=== PATIENT | male | born 1965 | race Hispanic/Latino ===

== ENCOUNTER 2017-04-09 00:56 | Emergency (ER) | payer MEDICAID ==
[2017-04-09 01:14] VITALS: O2SAT 98
[2017-04-09] MEDS ORDERED: Sodium Chloride 0.9% 1,000 ML IV STA ×2 (01:39→02:45)
--- NOTE | 2017-04-09 02:39 | ED PDOC ---
HPI: Wound Care - HPI Time Seen by Provider: 04/09/17 01:16 Chief Complaint (Nursing): Trauma Chief Complaint (Provider): fall History Per: Patient, EMS History Of Present Illness: 51 y/o male brought in by EMS for evaluation of head injury sustained prior to arrival. Patient states he was walking outside and tripped on uneven sidewalk, fell face forward. Patient denies LOC, but complaining of frontal headache. Denies dizziness, nausea/vomiting, neck/back pain. Last tetanus unknown. Past Medical History Reviewed: Historical Data, Nursing Documentation, Vital Signs Vital Signs: Last Vital Signs Temp 98.2 F 04/09/17 01:11 Pulse 76 04/09/17 01:11 Resp 17 04/09/17 01:11 BP 149/97 H 04/09/17 01:11 Pulse Ox 98 04/09/17 01:11 - Medical History PMH: Diabetes (type I) - Family History Family History: States: No Known Family Hx - Immunization History Hx Tetanus Toxoid Vaccination: No Hx Influenza Vaccination: No Hx Pneumococcal Vaccination: No - Allergies Allergies/Adverse Reactions: Allergies Allergy/AdvReac Type Severity Reaction Status Date / Time No Known Allergies Allergy Verified 04/09/17 01:14 Review of Systems ROS Statement: Except As Marked, All Systems Reviewed And Found Negative Neurological: Positive for: Headache Physical Exam - Reviewed Nursing Documentation Reviewed: Yes Vital Signs Reviewed: Yes - Physical Exam Appears: Positive for: Well (cachetic), Non-toxic, Uncomfortable (agitated, aggressive with staff) Head Exam: Positive for: NORMAL INSPECTION, NORMOCEPHALIC. Negative for: ATRAUMATIC (1.5cm laceration left front scalp with mild underlying swelling. No active bleeding. Wound edges approximate wlel.) Skin: Positive for: Normal Color Eye Exam: Positive for: Normal appearance, EOMI, PERRL ENT: Positive for: Normal ENT Inspection Cardiovascular/Chest: Positive for: Regular Rate, Rhythm Respiratory: Positive for: Normal Breath Sounds Gastrointestinal/Abdominal: Positive for: Normal Exam Extremity: Positive for: Normal ROM Neurologic/Psych: Positive for: Alert, Oriented - Laboratory Results Result Diagrams: 04/09/17 01:45 04/09/17 01:45 - ECG O2 Sat by Pulse Oximetry: 98 - Progress ED Course And Treament: labs, CT head, IV fluids, IV insulin Patient refused Tetanus vaccine and ABG. EXAM: CT Head Without Intravenous Contrast EXAM DATE/TIME: 04/09/2017 1:39 AM CLINICAL HISTORY: 51 years old, male; Injury or trauma; Fall; Additional info: Head injury TECHNIQUE: Axial computed tomography images of the head/brain without intravenous contrast. All CT scans at this facility use one or more dose reduction techniques, viz.: automated exposure control; ma/kV adjustment per patient size (including targeted exams where dose is matched to indication; i.e. head); or iterative reconstruction technique. Coronal and sagittal reformatted images were created and reviewed. COMPARISON: No relevant prior studies available. FINDINGS: BRAIN: Areas of low density in the periventricular white matter bilaterally, most likely representing mild chronic small vessel ischemic changes. No significant acute abnormality identified. No acute hemorrhage seen within the brain. No acute extra-axial fluid collections visualized. No evidence of significant mass effect within the brain. VENTRICLES: No evidence of significant hydrocephalus. BONES/JOINTS: Findings compatible with an old fracture of the left medial orbital wall. No acute fractures are seen. SOFT TISSUES: Soft tissue swelling in the left anterior scalp. SINUSES: Visualized paranasal sinuses appear clear. MASTOID AIR CELLS: Mastoid air cells appear clear. IMPRESSION: - No evidence of acute intracranial injury. - Old fracture of left medial orbital wall. No acute fractures. - See above for remaining findings. Repeat accucheck 368 after 2 1L NS bolus's; 6 units IV insulin ordered Repeat accucheck 278. Patient educated on findings, states he just picked up his Lantus prescription from the pharmacy; advised to take as directed. Ice affected area. Follow up PMD 2-3 days. Return precautions given. Procedure: Wound Repair - Time Out Time Out: Side verified, Site verified, Patient ID confirmed, Sterile procedures obs. - Consent Obtained Consent obtained: Verbal - Performed by Performed by: Mid-level Provider - Indications Indication(s):: Laceration - Location Shape:: Linear Dimensions Length cm: 1.5cm Dimensions width cm: 0.2cm Depth:: Epidermis - Debris Debris:: None - Irrigated Irrigated with ml of normal saline: 200mL - Wound repair method Prem:: Tissue glue, Steri-strips - Muscle repiar layer closed with Muscle repair layer closed with:: Tetanus ordered (patient refused Tetanus vaccine) - Patient tolerated procedure Patient Tolerated Procedure:: Well Disposition - Clinical Impression Clinical Impression: Hyperglycemia, Head injury, Forehead laceration - Patient ED Disposition Is Patient to be Admitted: No Counseled Patient/Family Regarding: Studies Performed, Diagnosis, Need For Followup - Disposition Disposition: Routine/Home Disposition Time: 05:15 Condition: IMPROVED Instructions: Laceration (ED), Head Injury (ED), Skin Adhesive Care (ED), Diabetic Hyperglycemia (ED) Forms: [email or web address] (Japanese)
[2017-04-09 02:42] LABS: BASO # 0.1 K/uL (0.0-0.2); BASO % 2.8 % (0.0-2.0); EOS % 0.8 % (0.0-4.0); HEMOGLOBIN 12.5 g/dL (12.0-18.0); LYMPH # 1.2 K/uL (1.0-4.3); LYMPH % 29.9 % (20.0-40.0); MEAN CELL VOLUME 94.4 fl (80.0-94.0); MEAN CORPUSCULAR HEMOGLOBIN 31.4 pg (27.0-31.0); MEAN CORPUSCULAR HGB CONC 33.3 g/dL (33.0-37.0); MEAN PLATELET VOLUME 9.4 fl (7.2-11.7); MONO # 0.3 K/uL (0.0-0.8); MONO % 8.3 % (0.0-10.0); NEUT # 2.4 K/uL (1.8-7.0); NEUT % 58.2 % (50.0-75.0); NRBC % 0.1 % (0.0-0.0); RBC 3.99 Mil/uL (4.40-5.90); RED CELL DISTRIBUTION WIDTH 14.9 % (11.5-14.5); WHITE BLOOD COUNT 4.1 K/uL (4.8-10.8)
[2017-04-09 02:59] LABS: ALB/GLOB RATIO 1.3 (1.0-2.1); ALBUMIN 3.7 g/dL (3.5-5.0); ALT/SGPT 43 U/L (21-72); AST/SGOT 28 U/L (17-59); BLOOD UREA NITROGEN 11 mg/dl (9-20); CALCIUM 9.1 mg/dL (8.4-10.2); GFR AFRICAN-AMERICAN > 60; GFR NON-AFRICAN AMERICAN > 60
[2017-04-09 03:02] LABS: SQUAMOUS EPITHIAL < 1 /hpf (0-5); URINE BILIRUBIN NEGATIVE (NEGATIVE); URINE BLOOD NEGATIVE (NEGATIVE); URINE CLARITY CLEAR (Clear); URINE COLOR YELLOW (YELLOW); URINE GLUCOSE (UA) >=500 mg/dL (Normal); URINE LEUKOCYTE ESTERASE NEG Leu/uL (Negative); URINE PROTEIN NEGATIVE (NEGATIVE); URINE UROBILINOGEN 0.2-1.0 mg/dL (0.2-1.0)
[2017-04-09 03:30] LABS: BARBITURATES, UR NEGATIVE (NEGATIVE); BENZODIAZEPINES, UR NEGATIVE (NEGATIVE); OPIATES, UR NEGATIVE (NEGATIVE); PHENCYCLIDINE, UR NEGATIVE (NEGATIVE)
--- NOTE | 2017-04-09 03:47 | CT ---
EXAM: CT Head Without Intravenous Contrast EXAM DATE/TIME: 04/09/2017 1:39 AM CLINICAL HISTORY: 51 years old, male; Injury or trauma; Fall; Additional info: Head injury TECHNIQUE: Axial computed tomography images of the head/brain without intravenous contrast. All CT scans at this facility use one or more dose reduction techniques, viz.: automated exposure control; ma/kV adjustment per patient size (including targeted exams where dose is matched to indication; i.e. head); or iterative reconstruction technique. Coronal and sagittal reformatted images were created and reviewed. COMPARISON: No relevant prior studies available. FINDINGS: BRAIN: Areas of low density in the periventricular white matter bilaterally, most likely representing mild chronic small vessel ischemic changes. No significant acute abnormality identified. No acute hemorrhage seen within the brain. No acute extra-axial fluid collections visualized. No evidence of significant mass effect within the brain. VENTRICLES: No evidence of significant hydrocephalus. BONES/JOINTS: Findings compatible with an old fracture of the left medial orbital wall. No acute fractures are seen. SOFT TISSUES: Soft tissue swelling in the left anterior scalp. SINUSES: Visualized paranasal sinuses appear clear. MASTOID AIR CELLS: Mastoid air cells appear clear. IMPRESSION: - No evidence of acute intracranial injury. - Old fracture of left medial orbital wall. No acute fractures. - See above for remaining findings.
[2017-04-09] MEDS ORDERED: Insulin Regular 100 units/ml IV STA (03:51)
[2017-04-09 03:53] VITALS: BP 136/92; PULSE 79; RESP 18; TEMP 98
[2017-04-09] MEDS ORDERED: Insulin Regular 100 units/ml ONE ×3 (03:59→17:27)
[2017-04-09 08:55] LABS: VENOUS BLOOD GAS BASE EXCESS -0.1 mmol/L (0.0-2.0); VENOUS BLOOD GAS PCO2 44 mmHg (40-60); VENOUS BLOOD GAS PO2 47 mm/Hg (30-55); VENOUS BLOOD PH 7.37 (7.32-7.43)
== END 2017-04-09 05:42 | disposition home or self-care (01) ==
LOC: H.ER 00:56
DX: S01.81XA Laceration without foreign body of other part of head, initial encounter (principal); S09.90XA Unspecified injury of head, initial encounter; W01.0XXA Fall on same level from slipping, tripping and stumbling without subsequent striking against object, initial encounter; Y92.89 Other specified places as the place of occurrence of the external cause; E11.65 Type 2 diabetes mellitus with hyperglycemia
CPT/HCPCS: 70450; 80053; 80320; 80324; 80345; 80346; 80349; 80353; 80358; 80361; 81003; 82803; 82948; 83992; 85025; 96374; 99284; J7040

== ENCOUNTER 2017-04-09 13:48 | Inpatient (IN) | payer MEDICAID ==
[2017-04-09] MEDS ORDERED: Sodium Chloride 0.9% 500 ML IV STA (14:06)
--- NOTE | 2017-04-09 14:22 | ED PDOC ---
HPI: General Adult Time Seen by Provider: 04/09/17 13:58 Chief Complaint (Nursing): High Blood Sugar Chief Complaint (Provider): high blood sugar History Per: Patient, EMS History/Exam Limitations: no limitations Onset/Duration Of Symptoms: Days (today) Additional Complaint(s): Pt. was at the [facility] asking for a place to stay, food, clothes. Pt. stated he was weak so EMS called. Pt. states he is cold and wants a blanket. Denies any chest pain, dyspnea, weakness, cough, headache, numbness, tingles, dizziness, nausea, vomit, diarrhea. Is homeless. Past Medical History Reviewed: Nursing Documentation, Vital Signs Vital Signs: Last Vital Signs Temp 96.7 F L 04/09/17 13:52 Pulse 72 04/09/17 16:24 Resp 20 04/09/17 13:52 BP 147/102 H 04/09/17 13:52 Pulse Ox 99 04/09/17 15:36 - Medical History PMH: Diabetes (type I) - Family History Family History: States: Unknown Family Hx - Immunization History Hx Tetanus Toxoid Vaccination: No Hx Influenza Vaccination: No Hx Pneumococcal Vaccination: No - Home Medications Home Medications: Ambulatory Orders Medication Instructions Recorded No Known Home Med 04/09/17 - Allergies Allergies/Adverse Reactions: Allergies Allergy/AdvReac Type Severity Reaction Status Date / Time No Known Allergies Allergy Verified 04/09/17 13:57 Review of Systems ROS Statement: Except As Marked, All Systems Reviewed And Found Negative Physical Exam - Reviewed Nursing Documentation Reviewed: Yes Vital Signs Reviewed: Yes - Physical Exam Appears: Positive for: Uncomfortable Head Exam: Positive for: NORMAL INSPECTION, NORMOCEPHALIC. Negative for: ATRAUMATIC (sutured laceration) Skin: Positive for: Normal Color, Warm, DRY Eye Exam: Positive for: EOMI, Normal appearance, PERRL ENT: Positive for: Normal ENT Inspection Neck: Positive for: Normal, Painless ROM Cardiovascular/Chest: Positive for: Regular Rate, Rhythm Respiratory: Positive for: CNT, Normal Breath Sounds Gastrointestinal/Abdominal: Positive for: Normal Exam, Bowel Sounds, Soft. Negative for: Tenderness Back: Positive for: Normal Inspection. Negative for: L CVA Tenderness, R CVA Tenderness Extremity: Positive for: Normal ROM. 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 Negative for: Motor/Sensory Deficits - Laboratory Results Result Diagrams: 04/09/17 14:30 04/09/17 14:30 Interpretation Of Abn Labs: 1020 glucose; chloride 89 - ECG ECG: Positive for: Interpreted By Me, Viewed By Me ECG Rhythm: Positive for: Normal QRS, Normal ST Segment, Sinus Rhythm O2 Sat by Pulse Oximetry: 99 Pulse Ox Interpretation: Normal - Progress ED Course And Treament: 1705: Stable. Spoke with Dr. Pryor who will admit. Will continue monitoring. Pt. not compliant. Not listening to need for further blood or fluids. Demands food. Sugar in 400 level. Will hold off on drip. Continue fluids and insulin bolus as needed. - Critical Care Total Time (In Min): 30 Documented Critical Care: Time excludes all time spent performint seperately billable procedures Disposition - Clinical Impression Clinical Impression: Hyperglycemia - Patient ED Disposition Is Patient to be Admitted: Yes Counseled Patient/Family Regarding: Studies Performed, Diagnosis - Disposition Disposition Time: 17:19 Condition: GUARDED - Pt Status Changed To: Hospital Disposition Of: Inpatient - Admit Certification Admit to Inpatient:: After my assessment, the patient will require hospitalization for at least two midnights. This is because of the severity of symptoms shown, intensity of services needed, and/or the medical risk in this patient being treated as an outpatient. - POA Present On Arrival: Poor Glycemic Control
[2017-04-09] MEDS ORDERED: Sodium Chloride 0.9% 1,000 ML IV STA ×2 (14:34→16:42)
[2017-04-09 14:40] LABS: BASO % 1.1 % (0.0-2.0); EOS % 0.3 % (0.0-4.0); HEMOGLOBIN 12.2 g/dL (12.0-18.0); LYMPH # 0.7 K/uL (1.0-4.3); MEAN CELL VOLUME 95.9 fl (80.0-94.0); MEAN CORPUSCULAR HEMOGLOBIN 31.3 pg (27.0-31.0); MEAN CORPUSCULAR HGB CONC 32.6 g/dL (33.0-37.0); MONO # 0.3 K/uL (0.0-0.8); MONO % 7.4 % (0.0-10.0); NEUT # 2.9 K/uL (1.8-7.0); NEUT % 73.2 % (50.0-75.0); NRBC % 0.1 % (0.0-0.0); RBC 3.89 Mil/uL (4.40-5.90)
[2017-04-09 14:56] LABS: ALB/GLOB RATIO 1.5 (1.0-2.1); ALBUMIN 3.7 g/dL (3.5-5.0); ALT/SGPT 61 U/L (21-72); AST/SGOT 87 U/L (17-59); BLOOD UREA NITROGEN 10 mg/dl (9-20); CALCIUM 8.8 mg/dL (8.4-10.2); GFR AFRICAN-AMERICAN > 60; GFR NON-AFRICAN AMERICAN > 60
[2017-04-09] MEDS ORDERED: Insulin Regular 100 units/ml IV STA ×2 (15:35→18:32)
[2017-04-09 17:33] LABS: VENOUS BLOOD GAS BASE EXCESS -1.1 mmol/L (0.0-2.0); VENOUS BLOOD GAS PCO2 51 mmHg (40-60); VENOUS BLOOD GAS PO2 29 mm/Hg (30-55); VENOUS BLOOD PH 7.31 (7.32-7.43)
[2017-04-09] MEDS ORDERED: Insulin Regular 100 units/ml ONE (17:51)
[2017-04-09 18:31] LABS: URINE BILIRUBIN NEGATIVE (NEGATIVE); URINE BLOOD NEGATIVE (NEGATIVE); URINE CLARITY CLEAR (Clear); URINE COLOR COLORLESS (YELLOW); URINE GLUCOSE (UA) >=500 mg/dL (Normal); URINE LEUKOCYTE ESTERASE NEG Leu/uL (Negative); URINE NITRATE NEGATIVE (NEGATIVE); URINE PROTEIN NEGATIVE (NEGATIVE); URINE UROBILINOGEN 0.2-1.0 mg/dL (0.2-1.0)
--- NOTE | 2017-04-09 18:36 | RAD ---
HISTORY: high blood sugar COMPARISON: No prior. FINDINGS: LUNGS: No active pulmonary disease. PLEURA: No significant pleural effusion identified, no pneumothorax apparent. CARDIOVASCULAR: Normal. OSSEOUS STRUCTURES: No significant abnormalities. VISUALIZED UPPER ABDOMEN: Normal. OTHER FINDINGS: None. IMPRESSION: No active disease.
--- NOTE | 2017-04-09 18:49 | CP.PCM.HP ---
History of Present Illness - History of Present Illness History of Present Illness: 51 yo homeless male know diabetic came in complaining of feeling weak and asking for a place to stay. Denied SOB, chest pain, nausea or vomiting. Present on Admission - Present on Admission Any Indicators Present on Admission: No History of DVT/PE: No History of Uncontrolled Diabetes: No Urinary Catheter: No Decubitus Ulcer Present: No Review of Systems - Review of Systems Systems not reviewed;Unavailable: Uncooperative (refused to be bothered and appeared agitated) Past Patient History - Tetanus Immunizations Tetanus Immunization: Unknown - Past Social History Smoking Status: Heavy Smoker > 10 Cigarettes Daily Home Situation {Lives}: Homeless - ENDOCRINE/METABOLIC Hx Diabetes Mellitus Type 1: Yes - PSYCHIATRIC Hx Substance Use: No Meds Allergies/Adverse Reactions: Allergies Allergy/AdvReac Type Severity Reaction Status Date / Time No Known Allergies Allergy Verified 04/09/17 13:57 Physical Exam - Constitutional Appears: No Acute Distress, Unkempt, Agitated - Head Exam Head Exam: ATRAUMATIC - Eye Exam Eye Exam: absent: Scleral icterus - ENT Exam ENT Exam: Mucous Membranes Moist - Respiratory Exam Respiratory Exam: absent: Rhonchi, Wheezes, Respiratory Distress - Cardiovascular Exam Cardiovascular Exam: REGULAR RHYTHM, +S1, +S2 - GI/Abdominal Exam GI & Abdominal Exam: Soft. absent: Tenderness - Rectal Exam Rectal Exam: Deferred - Neurological Exam Neurological exam: Alert - Psychiatric Exam Psychiatric exam: Agitated - Skin Skin Exam: Dry, Intact Results - Vital Signs Recent Vital Signs: Last Vital Signs Temp 96.7 F L 04/09/17 13:52 Pulse 72 04/09/17 16:24 Resp 20 04/09/17 13:52 BP 147/102 H 04/09/17 13:52 Pulse Ox 99 04/09/17 17:19 - Labs Result Diagrams: 04/09/17 14:30 04/09/17 14:30 Labs: Laboratory Results - last 24 hr 04/09/17 04/09/17 04/09/17 14:30 14:30 15:50 WBC 4.0 L RBC 3.89 L Hgb 12.2 Hct 37.3 MCV 95.9 H MCH 31.3 H MCHC 32.6 L RDW 15.0 H Plt Count 173 MPV 10.0 Neut % (Auto) 73.2 Lymph % (Auto) 18.0 L Piatt % (Auto) 7.4 Eos % (Auto) 0.3 Baso % (Auto) 1.1 Neut # (Auto) 2.9 Lymph # (Auto) 0.7 L Piatt # (Auto) 0.3 Eos # (Auto) 0.0 Baso # (Auto) 0.0 pO2 29 L VBG pH 7.31 L VBG pCO2 51 VBG HCO3 23.1 VBG Total CO2 27.3 VBG O2 Sat (Calc) 62.1 VBG Base Excess -1.1 L VBG Potassium 3.8 A-a O2 Difference 57.0 Glucose 497 H* Lactate 2.8 H FiO2 21.0 Crit Value Called To Kya flaherty rn Crit Value Called By 15 Crit Value Read Back Y Blood Gas Notified Time 1733 Sodium 123 L 129.0 L Potassium 5.6 H Chloride 89 L 92.0 L Carbon Dioxide 27 Anion Gap 13 BUN 10 Creatinine 0.5 L Est GFR ( Amer) > 60 Est GFR (Non-Af Amer) > 60 POC Glucose (mg/dL) Random Glucose 1020 H* Calcium 8.8 Total Bilirubin 0.5 AST 87 H D ALT 61 Alkaline Phosphatase 289 H Troponin I < 0.0120 Total Protein 6.3 Albumin 3.7 Globulin 2.5 Albumin/Globulin Ratio 1.5 Venous Blood Potassium 3.8 Alcohol, Quantitative < 10 04/09/17 17:15 WBC RBC Hgb Hct MCV MCH MCHC RDW Plt Count MPV Neut % (Auto) Lymph % (Auto) Piatt % (Auto) Eos % (Auto) Baso % (Auto) Neut # (Auto) Lymph # (Auto) Piatt # (Auto) Eos # (Auto) Baso # (Auto) pO2 VBG pH VBG pCO2 VBG HCO3 VBG Total CO2 VBG O2 Sat (Calc) VBG Base Excess VBG Potassium A-a O2 Difference Glucose Lactate FiO2 Crit Value Called To Crit Value Called By Crit Value Read Back Blood Gas Notified Time Sodium Potassium Chloride Carbon Dioxide Anion Gap BUN Creatinine Est GFR ( Amer) Est GFR (Non-Af Amer) POC Glucose (mg/dL) 418 H* Random Glucose Calcium Total Bilirubin AST ALT Alkaline Phosphatase Troponin I Total Protein Albumin Globulin Albumin/Globulin Ratio Venous Blood Potassium Alcohol, Quantitative Assessment & Plan (1) Hyperglycemia Status: Chronic Comment: patient admitted being diabetic but not on any medication. patient cannot be type 1 since he would have gone into DKA if he was not receiving insulin with BS of 1050. start IVF with NSS 500cc/hr x 4 liters. HgA1C, BMP in am. accuchek q 4hrs with moderate Lispro coverage
[2017-04-09 21:11] LABS: BLOOD UREA NITROGEN 10 mg/dl (9-20); CALCIUM 8.4 mg/dL (8.4-10.2); GFR AFRICAN-AMERICAN > 60; GFR NON-AFRICAN AMERICAN > 60
[2017-04-09] MEDS: Sodium Chloride 0.9% 1,000 ML IV SCH ×2 (21:56→23:57)
[2017-04-10 06:08] LABS: BASO # 0.1 K/uL (0.0-0.2); BASO % 1.6 % (0.0-2.0); EOS # 0.1 K/uL (0.0-0.7); EOS % 1.9 % (0.0-4.0); HEMOGLOBIN 11.6 g/dL (12.0-18.0); LYMPH # 1.3 K/uL (1.0-4.3); LYMPH % 35.1 % (20.0-40.0); MEAN CELL VOLUME 92.6 fl (80.0-94.0); MEAN CORPUSCULAR HEMOGLOBIN 31.8 pg (27.0-31.0); MEAN CORPUSCULAR HGB CONC 34.4 g/dL (33.0-37.0); MEAN PLATELET VOLUME 9.4 fl (7.2-11.7); MONO # 0.4 K/uL (0.0-0.8); MONO % 10.1 % (0.0-10.0); NEUT # 1.9 K/uL (1.8-7.0); NEUT % 51.3 % (50.0-75.0); RBC 3.64 Mil/uL (4.40-5.90); RED CELL DISTRIBUTION WIDTH 14.8 % (11.5-14.5); WHITE BLOOD COUNT 3.8 K/uL (4.8-10.8)
[2017-04-10] MEDS: Insulin Regular 100 units/ml SC SCH ×4 (06:49→22:10)
[2017-04-10] MEDS ORDERED: Insulin Regular 100 units/ml SC SCH (07:30)
[2017-04-10 08:21] LABS: BLOOD UREA NITROGEN 10 mg/dl (9-20); GFR AFRICAN-AMERICAN > 60; GFR NON-AFRICAN AMERICAN > 60
[2017-04-10 08:24] LABS: CALCIUM 8.4 mg/dL (8.4-10.2)
[2017-04-10] MEDS: Pantoprazole 40 mg EC Tab PO SCH (08:57)
[2017-04-10] MEDS: Enoxaparin 40 mg Syringe SC SCH (08:57)
--- NOTE | 2017-04-10 10:31 | CP.PCM.PN ---
Subjective - Date & Time of Evaluation Date of Evaluation: 04/10/17 Time of Evaluation: 09:35 - Subjective Subjective: 51 y/o M evaluated and examined by bedside. Pt reports feeling well, with NO acute complaints. Pt exclaims feeling very hungry and demanding food. Pt denies fever, headache, dizziness, CP, SOB, abdominal pain, urinary complaints. -- Pt reports being diagnosed with DM 2 ~20 years ago. Lispro is the last medication he recalls being administered himself. Pt is not very compliant with history taking. Pt demanding food at all times. Objective - Vital Signs/Intake and Output Vital Signs (last 24 hours): Temp Pulse Resp BP Pulse Ox 97.4 F L 75 20 131/83 98 04/10/17 08:58 04/10/17 08:58 04/10/17 08:58 04/10/17 08:58 04/10/17 08:58 Intake and Output: 04/10/17 04/10/17 06:59 18:59 Intake Total 2500 Output Total 1 Balance 2499 - Medications Medications: Current Medications Enoxaparin Sodium (Lovenox) 40 mg SC DAILY [facility] PRN Reason: Protocol Last Admin: 04/10/17 08:57 Dose: 40 mg Glipizide (Glucotrol) 10 mg PO ACB [facility] Insulin Human Regular (Humulin R) 0 units SC ACHS [facility] PRN Reason: Protocol Last Admin: 04/10/17 06:49 Dose: 8 units Metformin HCl (Glucophage) 500 mg PO BIDWM [facility] Pantoprazole Sodium (Protonix Ec Tab) 40 mg PO DAILY [facility] Last Admin: 04/10/17 08:57 Dose: 40 mg - Labs Labs: 04/10/17 05:00 04/10/17 05:00 - Constitutional Appears: Well, No Acute Distress, Cachectic - Eye Exam Eye Exam: Normal appearance - ENT Exam ENT Exam: Mucous Membranes Moist - Neck Exam Neck Exam: Full ROM. absent: Lymphadenopathy, Meningismus - Respiratory Exam Respiratory Exam: absent: Rales, Rhonchi, Wheezes - Cardiovascular Exam Cardiovascular Exam: REGULAR RHYTHM, +S1, +S2 - GI/Abdominal Exam GI & Abdominal Exam: Soft. absent: Tenderness - Neurological Exam Neurological Exam: Alert, Awake Assessment and Plan - Assessment and Plan (Free Text) Assessment: 51 y/o M with a pMHx of uncontrolled DM admitted for evaluation and management of Hyperglycemic hyperosmolar syndrome (HHS) Plan: 1. Hyperglycemic hyperosmolar syndrome (HHS) - serum glucose 1020 on 04/09/17, 287 last night and 452 this morning. - Consult to Endocrinology, Dr Blue. - IV NSS, maintenance - Initiate Metformin 500mg BID and Glipizide 10mg ACB - Sitagliptin 100mg daily as per Endocrinology. - Insulin sliding scale. 2. Prophylaxis - Enoxaparin SC daily - Pantoprazole daily. 3. Homeless situation - Social work consult.
--- NOTE | 2017-04-10 11:27 | CARD ---
APPROVED REPORT EKG Measurement Heart [id number] <Conclusion> Normal sinus rhythm Nonspecific ST abnormality Abnormal ECG
[2017-04-10] MEDS: Sodium Chloride 0.45% 1,000 ML IV SCH (14:30)
[2017-04-10] MEDS ORDERED: Insulin Detemir 100 Units/ml Inj SC SCH (22:00)
[2017-04-11] MEDS: Sodium Chloride 0.45% 1,000 ML IV SCH ×2 (01:35→12:26)
--- NOTE | 2017-04-11 04:12 | CON ---
ENDOCRINOLOGY CONSULT DATE: LOCATION: In room 407 HISTORY OF PRESENT ILLNESS: This is a 51-year-old male with known history of type 2 insulin-requiring diabetes presenting here with marked hyperglycemic accelerations and dehydration and is now being referred for diabetic evaluation and management. PAST MEDICAL HISTORY: As mentioned above, history of type 2 insulin-requiring diabetes using Lantus given as 15 units subcutaneously at bedtime daily as outpatient. He is also using oral hypoglycemic therapy with recent usage of metformin given as 500 mg b.i.d. and glipizide as 5 mg once daily as noted. History of hypertension and dyslipidemia. FAMILY HISTORY: Positive for diabetes and hypertension. SOCIAL HISTORY: The patient is currently homeless at this time. Admits to longstanding nicotine dependence and also social use of alcohol. No other illicit drug use. REVIEW OF SYSTEMS: Admits to generalized body weakness with easy fatigability and tiredness and suboptimal energy level. Also admits to progressively worsening dizziness and lightheadedness, worse on the day of admission. No chest pains or palpitations or PND, but his oral intake has been variable with nausea, dyspepsia, and vague upper abdominal pains with intermittent vomiting episodes. He also admits to marked polyuria, nocturia, and polydipsia as noted. He also admits to recent weight loss over 10 pounds as noted. PHYSICAL EXAMINATION: GENERAL: and emaciated-looking male in no apparent distress. VITAL SIGNS: Blood pressure of 150/90, pulse of 100 beats per minute and regular, temperature 98, respirations 20, height is 5 feet 9 inches, and weight is 130 pounds. HEENT: Head is normocephalic. Eyes; anicteric with pink conjunctivae. Funduscopy not possible at this time. Ears, nose, and throat otherwise normal. NECK: Supple. Thyroid gland is normal in size. No carotid bruits or cervical adenopathy. CARDIOPULMONARY: Some adynamic precordium. S1 and S2 is rapid and regular. LUNGS: Show scattered rhonchi. ABDOMEN: Flat, soft with positive bowel sounds. EXTREMITIES: No peripheral edema. Pulses are +2 bilaterally. LABORATORY DATA: His chemistries showed a BUN of 10, sodium 128, potassium 4.5, chloride 95, CO2 of 28, glucose 452, and creatinine 0.4. His glucose levels are ranging from 245 to 319 mg/dL. His TSH is 7.06. ASSESSMENT AND PLAN: This is a 51-year-old male with uncontrolled and decompensated type 2 insulin-requiring diabetes presenting here with hyperosmolar hyperglycemic state and dehydration with spurious hyponatremia. Plan of management as discussed with the patient and staff. We will continue the vigorous intravenous hydration as given and obtain serial chemistries and supplement accordingly as needed. We will initiate a basal and bolus insulin drug combination as indicated, but for now because of his homelessness situation, we will give him only a basal insulin with Levemir given as 20 units subcutaneously at bedtime daily to start tonight. We will modify the coverage scale to a low-dose algorithm and detailed orders have been given for Humalog insulin as ordered. We will also maximize his oral hypoglycemic therapy and increase the glipizide to 10 mg b.i.d. before meals and continue the metformin at 500 mg b.i.d. with meals as ordered. We will also add Januvia at 100 mg once daily in the morning as given. We will titrate incremental as indicated to optimize metabolic control. We will obtain a hemoglobin A1c to confirm his prior glycemic control and repeat the more comprehensive thyroid hormonal profile and add levothyroxine if he indeed has early hypothyroidism. We will follow. Brissa Blue MD
[2017-04-11] MEDS ORDERED: Levothyroxine 25 MCG TAB PO SCH (06:30)
[2017-04-11] MEDS: Insulin Regular 100 units/ml SC SCH ×2 (06:54→12:24)
[2017-04-11 07:04] LABS: ALB/GLOB RATIO 1.1 (1.0-2.1); ALT/SGPT 35 U/L (21-72); AST/SGOT 38 U/L (17-59); BLOOD UREA NITROGEN 8 mg/dl (9-20); CALCIUM 8.6 mg/dL (8.4-10.2); GFR AFRICAN-AMERICAN > 60; GFR NON-AFRICAN AMERICAN > 60
[2017-04-11 08:45] LABS: T4 8.59 ug/dl (5.5-11.0)
[2017-04-11 08:48] VITALS: RESP 18; O2SAT 98
[2017-04-11 08:59] LABS: T3 0.795 nmol/L (1.49-2.60)
[2017-04-11] MEDS: Pantoprazole 40 mg EC Tab PO SCH (09:47)
[2017-04-11] MEDS: Enoxaparin 40 mg Syringe SC SCH (09:47)
--- NOTE | 2017-04-11 10:57 | CP.PCM.DIS ---
Provider - Provider Date of Admission: 04/09/17 17:08 Attending physician: Orlin Pryor MD Primary care physician: None. Consults: Endocrinology: Dr Blue. Time Spent in preparation of Discharge (in minutes): 30 Diagnosis - Discharge Diagnosis (1) Type 2 diabetes mellitus with hyperosmolar nonketotic hyperglycemia Status: Acute Comment: -Today's serum glucose 165-improved. -Rx for Glipizide, Metformin, Levemir and Januvia, with 2 refills. -Pt counseled on the important need for PCP frequent follow-ups. -F/U with PMD after psych unit discharge. (2) Hypothyroidism Status: Acute Comment: - Initiated on levothyroxine 25mcg daily. -F/U thyroid panel results. (3) Depression Status: Acute Comment: -Psychiatry consulted, recommended rehabilitations at psych unit. -Pt medically cleared for discharge to Psych. Hospital Course - Lab Results Lab Results: Most Recent Lab Values WBC 3.8 K/uL (4.8-10.8) L 04/10/17 05:00 RBC 3.64 Mil/uL (4.40-5.90) L 04/10/17 05:00 Hgb 11.6 g/dL (12.0-18.0) L 04/10/17 05:00 Hct 33.7 % (35.0-51.0) L 04/10/17 05:00 MCV 92.6 fl (80.0-94.0) D 04/10/17 05:00 MCH 31.8 pg (27.0-31.0) H 04/10/17 05:00 MCHC 34.4 g/dL (33.0-37.0) 04/10/17 05:00 RDW 14.8 % (11.5-14.5) H 04/10/17 05:00 Plt Count 160 K/uL (130-400) 04/10/17 05:00 MPV 9.4 fl (7.2-11.7) 04/10/17 05:00 Neut % (Auto) 51.3 % (50.0-75.0) 04/10/17 05:00 Lymph % (Auto) 35.1 % (20.0-40.0) 04/10/17 05:00 [place] % (Auto) 10.1 % (0.0-10.0) H 04/10/17 05:00 Eos % (Auto) 1.9 % (0.0-4.0) 04/10/17 05:00 Baso % (Auto) 1.6 % (0.0-2.0) 04/10/17 05:00 Neut # (Auto) 1.9 K/uL (1.8-7.0) 04/10/17 05:00 Lymph # (Auto) 1.3 K/uL (1.0-4.3) 04/10/17 05:00 [place] # (Auto) 0.4 K/uL (0.0-0.8) 04/10/17 05:00 Eos # (Auto) 0.1 K/uL (0.0-0.7) 04/10/17 05:00 Baso # (Auto) 0.1 K/uL (0.0-0.2) 04/10/17 05:00 pO2 29 mm/Hg (30-55) L 04/09/17 15:50 VBG pH 7.31 (7.32-7.43) L 04/09/17 15:50 VBG pCO2 51 mmHg (40-60) 04/09/17 15:50 VBG HCO3 23.1 mmol/L 04/09/17 15:50 VBG Total CO2 27.3 mmol/L (22-28) 04/09/17 15:50 VBG O2 Sat (Calc) 62.1 % (40-65) 04/09/17 15:50 VBG Base Excess -1.1 mmol/L (0.0-2.0) L 04/09/17 15:50 VBG Potassium 3.8 mmol/L (3.6-5.2) 04/09/17 15:50 A-a O2 Difference 57.0 mm/Hg 04/09/17 15:50 Sodium 129.0 mmol/L (132-148) L 04/09/17 15:50 Chloride 92.0 mmol/L (98-107) L 04/09/17 15:50 Glucose 497 mg/dL (75-110) H* 04/09/17 15:50 Lactate 2.8 mmol/L (0.7-2.1) H 04/09/17 15:50 FiO2 21.0 % 04/09/17 15:50 Crit Value Called To Kya flaherty rn 04/09/17 15:50 Crit Value Called By 15 04/09/17 15:50 Crit Value Read Back Y 04/09/17 15:50 Blood Gas Notified Time 1733 04/09/17 15:50 Sodium 130 mmol/l (132-148) L 04/11/17 05:14 Potassium 4.2 MMOL/L (3.6-5.0) 04/11/17 05:14 Chloride 98 mmol/L (98-107) 04/11/17 05:14 Carbon Dioxide 26 mmol/L (22-30) 04/11/17 05:14 Anion Gap 10 (10-20) 04/11/17 05:14 BUN 8 mg/dl (9-20) L 04/11/17 05:14 Creatinine 0.5 mg/dl (0.8-1.5) L 04/11/17 05:14 Est GFR ( Amer) > 60 04/11/17 05:14 Est GFR (Non-Af Amer) > 60 04/11/17 05:14 POC Glucose (mg/dL) 165 mg/dL (65-110) H 04/11/17 06:03 Random Glucose 183 mg/dL (75-110) H 04/11/17 05:14 Hemoglobin A1c 12.9 % (4.2-6.5) H 04/10/17 08:46 Calcium 8.6 mg/dL (8.4-10.2) 04/11/17 05:14 Total Bilirubin 0.3 mg/dl (0.2-1.3) 04/11/17 05:14 AST 38 U/L (17-59) 04/11/17 05:14 ALT 35 U/L (21-72) 04/11/17 05:14 Alkaline Phosphatase 181 U/L (38-126) H D 04/11/17 05:14 Troponin I < 0.0120 ng/mL (0.00-0.120) 04/09/17 14:30 Total Protein 5.6 G/DL (6.3-8.2) L 04/11/17 05:14 Albumin 3.0 g/dL (3.5-5.0) L 04/11/17 05:14 Globulin 2.6 gm/dL (2.2-3.9) 04/11/17 05:14 Albumin/Globulin Ratio 1.1 (1.0-2.1) 04/11/17 05:14 Thyroxine (T4) 8.59 ug/dl (5.5-11.0) 04/11/17 05:14 Total T3 0.795 nmol/L (1.49-2.60) L 04/11/17 05:14 TSH 3rd Generation 8.42 mIU/ML (0.46-4.68) H 04/11/17 05:14 Venous Blood Potassium 3.8 mmol/L (3.6-5.2) 04/09/17 15:50 Urine Color Colorless (YELLOW) 04/09/17 18:14 Urine Clarity Clear (Clear) 04/09/17 18:14 Urine pH 7.0 (5.0-8.0) 04/09/17 18:14 Ur Specific [place] 1.020 (1.003-1.030) 04/09/17 18:14 Urine Protein Negative mg/dL (NEGATIVE) 04/09/17 18:14 Urine Glucose (UA) >=500 mg/dL (Normal) 04/09/17 18:14 Urine Ketones Negative mg/dL (NEGATIVE) 04/09/17 18:14 Urine Blood Negative (NEGATIVE) 04/09/17 18:14 Urine Nitrate Negative (NEGATIVE) 04/09/17 18:14 Urine Bilirubin Negative (NEGATIVE) 04/09/17 18:14 Urine Urobilinogen 0.2-1.0 mg/dL (0.2-1.0) 04/09/17 18:14 Ur Leukocyte Esterase Neg [place]/uL (Negative) 04/09/17 18:14 Urine RBC (Auto) 1 /hpf (0-3) 04/09/17 18:14 Urine Microscopic WBC < 1 /hpf (0-5) 04/09/17 18:14 Alcohol, Quantitative < 10 mg/dl (0-10) 04/09/17 14:30 - Hospital Course Hospital Course: 51 y/o M with a PMhx of uncontrolled DM was admitted for management of hyperosmolar hyperglycemic syndrome. Pt presented to ER with a serum glucose level of 1020 mg/dL. HbA1c 12.9-elevated. Filter Tender Jelly evaluated pt. Pt received IV fluids, initiated on Metformin, Glipizide, Januvia and Levemir. Pt remained afebrile and tolerating PO during hospitalization. TSH was elevated, Levothyroxine was initiated. Pt also complained of aggravating depression, having suicidal ideas with no reasons for leaving Today, pt is stable, will be discharged to psych unit with prescriptions for medications. Pt instructed to f/ u with PMD after d/c from hospital. - Date & Time of H&P Date of H&P: 04/09/17 Time of H&P: 18:09 Discharge Exam - Head Exam Additional comments: Minor abrasion and small laceration on L frontal area. - Eye Exam Eye Exam: EOMI, Normal appearance - ENT Exam ENT Exam: Mucous Membranes Moist - Neck Exam Neck exam: Full Rom - Respiratory Exam Respiratory Exam: NORMAL BREATHING PATTERN, UNREMARKABLE - Cardiovascular Exam Cardiovascular Exam: REGULAR RHYTHM, +S1, +S2 - GI/Abdominal Exam GI & Abdominal Exam: Normal Bowel Sounds, Soft. absent: Distended, Guarding, Tenderness - Psychiatric Exam Psychiatric exam: Flat Affect Discharge Plan - Discharge Medications Prescriptions: GlipiZIDE [Glucotrol] 10 mg PO ACBD #30 tab Insulin Detemir [Levemir] 20 units SC HS #1 vial Levothyroxine [Synthroid] 25 mcg PO DAILY@0630 #30 tab metFORMIN [glucOPHAGE] 500 mg PO BIDWM #60 tab SITagliptin [Januvia] 100 mg PO DAILY #30 tab - Follow Up Plan Condition: GUARDED Disposition: HOME/ ROUTINE Instructions: Hypothyroidism (DC), Diabetes Mellitus Type 2 in Adults (DC) Additional Instructions: - Please establish care with a PCP and f/u with PMD within 1 week. - Take medications as instructed. Referrals: [facility] [place] [Outside]
[2017-04-11] MEDS ORDERED: Insulin Regular 100 units/ml SC STA (12:23)
[2017-04-11 13:08] VITALS: BP 119/81; PULSE 83; TEMP 98.2
--- NOTE | 2017-04-11 13:38 | CP.PCM.CON ---
History of Present Illness - History of Present Illness History of Present Illness: consult requested as pt presenting with depressed mood and passive suicidal ideations without plan pt is 51 y/o M with a PMhx of uncontrolled DM was admitted for management of hyperosmolar hyperglycemic syndorme. Pt presented to ER with a serum glucose level of 1020mg/dL. pt currently medically stable, on discharge expressed depressed mood , reported having suicidal ideation , would not elaborate on a plan pt stated he has been depressed for twenty years since he was placed on disability because of diabetes, prt reported never had previous formal psyciatric treatment or hospitalization as he refused to address the problem reported currently depressed , low energy anhedonia pt stated has been using unspecified amount of alcohol, last use was two weeks ago, denied any current substance use denied any current perceptual disturbances Past Patient History - Tetanus Immunizations Tetanus Immunization: Unknown - Past Medical History & Family History Past Medical History?: Yes - Past Social History Smoking Status: Light Smoker < 10 Cigarettes Daily - ENDOCRINE/METABOLIC Hx Diabetes Mellitus Type 1: Yes - MUSCULOSKELETAL/RHEUMATOLOGICAL Hx Falls: Yes - PSYCHIATRIC Hx Substance Use: No Meds Home Medications: Home Medication List Medication Instructions Recorded Confirmed Type GlipiZIDE [Glucotrol] 10 mg PO ACBD #30 tab 04/11/17 Rx Insulin Detemir [Levemir] 20 units SC HS #1 vial 04/11/17 Rx Levothyroxine [Synthroid] 25 mcg PO DAILY@0630 #30 tab 04/11/17 Rx SITagliptin [Januvia] 100 mg PO DAILY #30 tab 04/11/17 Rx metFORMIN [glucOPHAGE] 500 mg PO BIDWM #60 tab 04/11/17 Rx Allergies/Adverse Reactions: Allergies Allergy/AdvReac Type Severity Reaction Status Date / Time No Known Allergies Allergy Verified 04/09/17 13:57 - Medications Medications: Current Medications Enoxaparin Sodium (Lovenox) 40 mg SC DAILY AVRIL PRN Reason: Protocol Last Admin: 04/11/17 09:47 Dose: 40 mg Glipizide (Glucotrol) 10 mg PO ACBD [facility] Last Admin: 04/11/17 09:46 Dose: 10 mg Sodium Chloride (Sodium Chloride 0.45%) 1,000 mls @ 100 mls/hr IV .Q10H AVRIL Stop: 04/11/17 14:08 Last Admin: 04/11/17 12:26 Dose: 100 mls/hr Insulin Detemir (Levemir) 20 units SC [facility] Last Admin: 04/10/17 22:12 Dose: 20 u Insulin Human Regular (Humulin R) 0 units SC [facility] PRN Reason: Protocol Last Admin: 04/11/17 12:24 Dose: 12 units Levothyroxine Sodium (Synthroid) 25 mcg PO DAILY@0630 [facility] Last Admin: 04/11/17 06:03 Dose: 25 mcg Metformin HCl (Glucophage) 500 mg PO BIDWM [facility] Last Admin: 04/11/17 09:47 Dose: 500 mg Pantoprazole Sodium (Protonix Ec Tab) 40 mg PO DAILY [facility] Last Admin: 04/11/17 09:47 Dose: 40 mg Sitagliptin Phosphate (Januvia) 100 mg PO DAILY [facility] Last Admin: 04/11/17 09:46 Dose: 100 mg Physical Exam - Psychiatric Exam Additional comments: pt seen in bed,dressed in a hospital gown, poor eye contact, mood depressed, affect anxious irritable depressed , thought form circumstantial speech underproductive , reported passive suicidal ideation , no plan, denied homiocidal ideation, denied perceptual disturbances, non elicited alert awake oriented to person and place, poor insight and poor judgment Results - Vital Signs Recent Vital Signs: Last Vital Signs Temp 98.2 F 04/11/17 12:07 Pulse 83 04/11/17 12:07 Resp 18 04/11/17 12:07 BP 119/81 04/11/17 12:07 Pulse Ox 98 04/11/17 12:07 - Labs Result Diagrams: 04/10/17 05:00 04/11/17 05:14 Labs: Laboratory Results - last 24 hr 04/10/17 04/10/17 04/10/17 05:47 08:46 15:54 Sodium Potassium Chloride Carbon Dioxide Anion Gap BUN Creatinine Est GFR ( Amer) Est GFR (Non-Af Amer) POC Glucose (mg/dL) 387 H 195 H Random Glucose Hemoglobin A1c 12.9 H Calcium Total Bilirubin AST ALT Alkaline Phosphatase Total Protein Albumin Globulin Albumin/Globulin Ratio Thyroxine (T4) Total T3 TSH 3rd Generation 04/10/17 04/11/17 04/11/17 21:25 05:14 06:03 Sodium 130 L Potassium 4.2 Chloride 98 Carbon Dioxide 26 Anion Gap 10 BUN 8 L Creatinine 0.5 L Est GFR ( Amer) > 60 Est GFR (Non-Af Amer) > 60 POC Glucose (mg/dL) 332 H 165 H Random Glucose 183 H Hemoglobin A1c Calcium 8.6 Total Bilirubin 0.3 AST 38 ALT 35 Alkaline Phosphatase 181 H D Total Protein 5.6 L Albumin 3.0 L Globulin 2.6 Albumin/Globulin Ratio 1.1 Thyroxine (T4) 8.59 Total T3 0.795 L TSH 3rd Generation 8.42 H Assessment & Plan - Assessment and Plan (Free Text) Assessment: 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
--- NOTE | 2017-04-12 00:32 | PN ---
ENDOCRINOLOGY FOLLOWUP NOTE DATE: LOCATION: Room 407. SUBJECTIVE: This is a 51-year-old male with recent uncontrolled type 2 insulin-requiring diabetes now being followed closely for metabolic management. His glycemic levels are fluctuating, but improved and the glucose values have ranged from 165-232 mg/dL. His latest chemistry showed a BUN of 8, sodium 130, potassium 4.2, chloride 98, CO2 of 26, glucose 183 and creatinine 0.5. So at this time, we will continue the same triple oral hypoglycemic drug therapy to allow for dose equilibration and keep him on the glipizide given as 10 mg b.i.d. with Januvia at 100 mg daily and metformin at 500 mg b.i.d. as ordered. We will titrate incrementally as indicated to optimize metabolic control. We will also continue the same basal insulin given overnight with Levemir given as 20 units subcu at bedtime daily as ordered. We will continue the levothyroxine given as 25 mcg daily as given. We will obtain serial chemistries and supplement accordingly as needed. We will follow. Brissa Blue MD
== END 2017-04-11 15:50 | DRG 294 ==
LOC: H.ER 13:48 → H.ERHOLD 17:08 → H.TEL 18:46
DX: E11.00 Type 2 diabetes mellitus with hyperosmolarity without nonketotic hyperglycemic-hyperosmolar coma (NKHHC) (principal); E87.1 Hypo-osmolality and hyponatremia; E86.0 Dehydration; F06.30 Mood disorder due to known physiological condition, unspecified; F10.14 Alcohol abuse with alcohol-induced mood disorder; E03.9 Hypothyroidism, unspecified; F32.9 Major depressive disorder, single episode, unspecified; E78.5 Hyperlipidemia, unspecified; I10 Essential (primary) hypertension; F17.210 Nicotine dependence, cigarettes, uncomplicated; Z79.4 Long term (current) use of insulin; Z59.0 Homelessness

== ENCOUNTER 2017-04-11 16:52 | Inpatient (IN) | payer MEDICAID ==
[2017-04-11 16:59] VITALS: BMI 19.2
--- NOTE | 2017-04-11 17:43 | PCM.BM ---
<Timmy Blair Carmine - Last Filed: 04/11/17 17:41> Treatment Plan Problems - Problems identified on initial assessmt Hopelessness/Helplessness Date Initiated: 04/11/17 Time Initiated: 15:45 Assessment reference: NA Status: Active Treatment assets and liabiliti Patient Assests: adapts well, cooperative Patient Liabilities: live alone, physical pain, financial problems, poor support system, substance abuse, medical problems, imparied memory - Milieu Protocol Maintain good personal hygiene: every shift Encourage regular showers, every shift Remind patient to perform daily oral care, every shift Assist patient to perform ADL's Maintain personal safety: every shift Educate patient to report safety concerns to staff, every shift Monitor environment for contraband/sharps Medication safety: Monitor for expected outcome, potential side effects: every shift, Assess barriers to learning: every shift, Assess readiness for medication education: every shift <Lindsay King - Last Filed: 04/14/17 17:17> Treatment assets and liabiliti Patient Assests: adapts well, resourceful, self-reliant, ADL independent, negotiates basic needs, cognitively intact Patient Liabilities: live alone (pt disclosed homelessness x6 months), physical pain, poor support system, substance abuse, medical problems, imparied memory, legal issue (pt reports significant legal hx but declined to elaborate) Family Contact Family contact: Patient declines to allow family contact at present - Goals for Treatment Patient goals for treatment: Patient to continue stabilization on 3NP through medication management and group/supportive therapy. Patient to be encouraged to attend groups regularly to promote self-awareness,compliance, sobriety, and improve insight, coping skills and self-esteem. Patient to be provided with referral for appropriate level of aftercare to reduce risk of future hospitalizations and ensure safety in the community. Discharge/Continuing Care - Education Needs Education Needs: Patient Medication, Patient Coping Skills, Patient Anger Management skills, Patient Community resources, Patient Aftercare Safety Plan - Discharge Discharge Criteria: Tolerates medication w/o severe side effects, Free of Suicidal thoughts, Free of agitation, Normal sleep pattern, Ability to care for self, Reduction of target symptoms Discharge to:: Correction - Treatment Team Participation Patient/Family/SO Statement: 04/14/17 17:19 Patient attended tx team this morning. Patient better able to engage in discussion regarding precursors to hospitalization, progress on 3NP and aftercare. Patient reports improvement in symptoms of depression/anxiety since admission. Patient reported feeling real good. Patient less irritable, explosive and withdrawn today. Patient was significant more pleasant and cooperative through-out interaction with check writer salesperson. Patent denied SI/HI. Patient denies AH/VH. No harmful behaviors noted. Psychoeducation provided regarding importance of compliance with medications and diabetic diet. Patient disclosed that in fact, has been homeless for past 6 months. Patient reported wanting to contribute to society and fellow man and seek employment upon d/c. Patient reported receiving his SSI check on 04/14 and expressed plans to return to homeless [facility] in [place], [place] (unable to provide name/address) to retrieve his belongings (debit card, ID) in order to withdraw money and look for stable housing. Patient agreeable to being discharged with a list of outpatient mental health providers in [facility]. Patient reports having a pharmacy and being able to fill medications independently. Discussed with Family/SO: No Was Patient/Family/SO present at Treatment Team Meeting: Yes <Ivan Mcneill - Last Filed: 04/15/17 08:27> - Diagnosis (1) Depression Status: Acute Interventions: psychotherapy pharmacotherapy 04/15/17 08:27
[2017-04-11] MEDS ORDERED: Alum-Mag Hydrox-Simethicone Susp (30 mL) PO PRN (17:44)
[2017-04-11] MEDS ORDERED: Magnesium Hydroxide Susp 30 ml UD PO PRN (17:44)
[2017-04-11] MEDS ORDERED: DiphenhydrAMINE 50 mg/ml Inj IM PRN (17:44)
[2017-04-11] MEDS: Insulin Detemir 100 Units/ml Inj SC SCH (22:18)
[2017-04-11] MEDS: Insulin Regular 100 units/ml SC SCH (22:19)
[2017-04-12] MEDS: Levothyroxine 25 MCG TAB PO SCH (06:43)
[2017-04-12] MEDS: Insulin Regular 100 units/ml SC SCH ×4 (08:52→21:24)
[2017-04-12 09:32] LABS: T4 8.9 ug/dl (5.5-11.0)
--- NOTE | 2017-04-12 10:26 | PCM.PSYCH ---
Initial Psychiatric Evaluation - Initial Psychiatric Evaluation Legal Status: Capacity Chief Complaint (in patient's own words): I am not intrested in talking now Patient's Reaction to Hospitalization: pt requested help History of Present Illness and Precipitating Events: pt is 51 y/o M with a PMhx of uncontrolled DM was admitted for management of hyperosmolar hyperglycemic syndorme. Pt presented to ER with a serum glucose level of 1020mg/dL. after medical stabilization and on discharge pt expressed depressed mood and , reported having suicidal ideation , would not elaborate on a plan pt stated he has been depressed for twenty years since he was placed on disability because of diabetes, pt reported never had previous formal psychiatric treatment or hospitalization as he refused to address the problem reported currently depressed mood , low energy ,anhedonia, passive suicidal ideation without a plan pt stated has been using unspecified amount of alcohol, last use was two weeks ago, denied any current substance use denied any current perceptual disturbances Current Medications: Active Medications Generic Name Dose Route Start Last Admin Trade Name Freq PRN Reason Stop Dose Admin Acetaminophen 650 mg 04/11/17 17:44 Tylenol 325mg Tab PO Q4 PRN Pain, moderate (4-7) Al Hydrox/Mg Hydrox/Simethicone 30 ml 04/11/17 17:44 Maalox Plus 30 Ml PO Q4 PRN Dyspepsia Diphenhydramine HCl 50 mg 04/11/17 17:44 Benadryl PO Q6 PRN Extrapyramidal Symptoms Diphenhydramine HCl 50 mg 04/11/17 17:44 Benadryl IM Q6 PRN Extrapyramidal S/S Unable PO Glipizide 10 mg 04/12/17 07:30 04/12/17 08:53 Glucotrol PO 10 mg ACBD AVRIL Administration Haloperidol 5 mg 04/11/17 17:44 Haldol PO Q4 PRN Agitation Haloperidol Lactate 5 mg 04/11/17 17:44 Haldol IM Q4 PRN Agitation, Unable to Take PO Insulin Detemir 20 units 04/11/17 22:00 04/11/17 22:18 Levemir SC 20 u HS AVRIL Administration Insulin Human Regular 0 units 04/11/17 22:00 04/12/17 08:52 Humulin R SC 1 unit ACHS AVRIL Administration Protocol Levothyroxine Sodium 25 mcg 04/12/17 06:30 04/12/17 06:43 Synthroid PO 25 mcg DAILY@0630 AVRIL Administration Lorazepam 2 mg 04/11/17 17:44 Ativan IM Q4 PRN Anxiety/Agitation,Unable PO Lorazepam 2 mg 04/11/17 17:44 Ativan PO Q4 PRN Anxiety/Agitation Magnesium Hydroxide 30 ml 04/11/17 17:44 Milk Of Magnesia PO HS PRN Constipation Nicotine 1 patch 04/12/17 09:00 04/12/17 08:54 Nicoderm Cq TD 1 patch DAILY AVRIL Administration Sertraline HCl 25 mg 04/12/17 09:00 04/12/17 08:54 Zoloft PO 25 mg DAILY AVRIL Administration Sitagliptin Phosphate 100 mg 04/12/17 09:00 04/12/17 08:54 Januvia PO 100 mg DAILY AVRIL Administration Past Psychiatric History - Past Psychiatric History Explanation of prior treatment: pt uncooperative in giving history reported one previous psychiatric hospitalization in [facility] , would not elaborate on details History of ETOH/Drug Use: pt reported using unspecified amount of alcohol daily , last use two weeks ago Pertinent Medical Hx (Current Medical&Sleep Prob, Allergies): Allergies Allergy/AdvReac Type Severity Reaction Status Date / Time No Known Allergies Allergy Verified 04/09/17 13:57 GlipiZIDE [Glucotrol] 10 mg PO ACBD #30 tab 04/11/17 Insulin Detemir [Levemir] 20 units SC HS #1 vial 04/11/17 Levothyroxine [Synthroid] 25 mcg PO DAILY@0630 #30 tab 04/11/17 SITagliptin [Januvia] 100 mg PO DAILY #30 tab 04/11/17 metFORMIN [glucOPHAGE] 500 mg PO BIDWM #60 tab 04/11/17 Mental Status Examination - Personal Presentation Personal Presentation: Looks older than stated age Additional comments: unkempt, disheveled - Affect Affect: Depressed Additional comments: irritable, angry - Reliability in Providing Information Reliability in Providing Information: Poor, due to altered mood - Speech Speech: Relevant - Mood Mood: Depressed, Anxious - Formal Thought Process Formal Thought Process: Circumstantial - Hallucinations/Delusions Additional comments: pt denied perceptual disturbances, non elicited - Obsessions/Compulsions Obsessions: No Compulsions: No - Cognitive Functions Orientation: Person, Place Sensorium: Alert Attention/Concentration: Attentive Judgement: Imparied, as evidence by: Poor judgement, Imparied, as evidence by: Lack of insight into illness - Risk Risk: Diminished functioning - Strength & Assets Inventory Strength & Assets Inventory: Life experience - Limitations Additional comments: poor insight DSM 5 DX - DSM 5 DSM 5 Diagnosis: mood disorder due to medical condition with depressive features depression alcohol use disorder - Recommended/Plan of Treatment Treatment Recommendations and Plan of Treatment: start zoloft 25mg daily start neurontin 100mg bid for irritability and anxiety group and supportive therapy Prognosis: guarded Discharge Plan and Discharge Criteria: pt mental status stable
[2017-04-12] MEDS: Insulin Detemir 100 Units/ml Inj SC SCH (21:25)
[2017-04-13] MEDS: Levothyroxine 25 MCG TAB PO SCH (07:09)
[2017-04-13] MEDS: Insulin Regular 100 units/ml SC SCH ×4 (08:00→22:00)
--- NOTE | 2017-04-13 12:08 | PCM.PYCHPN ---
Psychiatric Progress Note - Psychiatric Progress Note Patient seen today, length of contact: pt evaluated discussed with team chart reviewed Patient Chief Complaint: I am tired because of my illness Problems Identified/Issues Discussed: pt presenting with depressed mood affect irritable and angry, reported feeling anxious and down because of his current health condition, denied any current suicidal or homicidal ideations denied perceptual disturbances, no reported side effects of medications Medical Problems: pt uncooperative in giving history reported one previous psychiatric hospitalization in [facility] , would not elaborate on details DSM 5 Symptoms Update: mood disorder due to medical condition with depressed features alcohol use disorder Medication Change: No Medical Record Reviewed: Yes Mental Status Examination - Cognitive Function Orientation: Person, Place Attention: Poor Concentration: Poor Association: WNL Fund of Knowledge: Poor Decription of patient's judgement and insights: impaired insight and judgment - Mood Mood: Depressed, Anxious - Affect Affect: Constricted, Depressed - Speech Speech: Loud - Formal Thought Process Formal Thought Process: Circumstantial Psychotic Thoughts and Behaviors: pt denied perceptual disturbances, non elicited - Suicidal Ideation Suicidal Ideation: No - Homicidal Ideation Homicidal Ideation: No Goal/Treatment Plan - Goal/Treatment Plan Need for Continued Stay: Discharge may exacerbated symptoms Progress Toward Problem(s) and Goals/Treatment Plan: start zoloft 25mg daily start neurontin 100mg bid for irritability and anxiety group and supportive therapy
--- NOTE | 2017-04-13 14:28 | CP.PCM.CON ---
History of Present Illness - History of Present Illness History of Present Illness: reason for consult: per hospital protocol HPI: 51 y/o M with a PMhx of uncontrolled DM was recently admitted for management of hyperosmolar hyperglycemic syndrome. HbA1c 12.9-elevated. 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 Pt received IV fluids, initiated on Metformin, Glipizide, Januvia and Levemir. TSH was elevated, Levothyroxine was initiated. Pt also complained of aggravating depression, having suicidal ideas. Patient now admitted to psych for depression. ROS: per HPI all other systems reviewed and negative Past Patient History - Tetanus Immunizations Tetanus Immunization: Unknown - Past Medical History & Family History Past Medical History?: Yes - Past Social History Smoking Status: Light Smoker < 10 Cigarettes Daily - CARDIAC Hx Cardiac Disorders: No Hx Hypertension: Yes - PULMONARY Hx Respiratory Disorders: No - NEUROLOGICAL Hx Neurological Disorder: No - HEENT Hx HEENT Problems: No - RENAL Hx Chronic Kidney Disease: No Hx Kidney Stones: No - ENDOCRINE/METABOLIC Hx Diabetes Mellitus Type 1: Yes - HEMATOLOGICAL/ONCOLOGICAL Hx Blood Disorders: No - INTEGUMENTARY Hx Dermatological Problems: No - MUSCULOSKELETAL/RHEUMATOLOGICAL Hx Falls: Yes - GASTROINTESTINAL Hx Gastrointestinal Disorders: No - GENITOURINARY/GYNECOLOGICAL Hx Genitourinary Disorders: No - PSYCHIATRIC Hx Substance Use: No - SURGICAL HISTORY Hx Surgeries: No - ANESTHESIA Hx Anesthesia: Yes Meds Allergies/Adverse Reactions: Allergies Allergy/AdvReac Type Severity Reaction Status Date / Time No Known Allergies Allergy Verified 04/09/17 13:57 - Medications Medications: Current Medications Acetaminophen (Tylenol 325mg Tab) 650 mg PO Q4 PRN PRN Reason: Pain, moderate (4-7) Al Hydrox/Mg Hydrox/Simethicone (Maalox Plus 30 Ml) 30 ml PO Q4 PRN PRN Reason: Dyspepsia Diphenhydramine HCl (Benadryl) 50 mg PO Q6 PRN PRN Reason: Extrapyramidal Symptoms Diphenhydramine HCl (Benadryl) 50 mg IM Q6 PRN PRN Reason: Extrapyramidal S/S Unable PO Gabapentin (Neurontin) 100 mg PO BID [facility] Last Admin: 04/13/17 10:12 Dose: 100 mg Glipizide (Glucotrol) 10 mg PO ACBD [facility] Last Admin: 04/13/17 08:00 Dose: 10 mg Haloperidol (Haldol) 5 mg PO Q4 PRN PRN Reason: Agitation Haloperidol Lactate (Haldol) 5 mg IM Q4 PRN PRN Reason: Agitation, Unable to Take PO Insulin Detemir (Levemir) 20 units SC HS [facility] Last Admin: 04/12/17 21:25 Dose: 20 u Insulin Human Regular (Humulin R) 0 units SC ACHS [facility] PRN Reason: Protocol Last Admin: 04/13/17 12:16 Dose: 6 unit Levothyroxine Sodium (Synthroid) 25 mcg PO DAILY@0630 [facility] Last Admin: 04/13/17 07:09 Dose: 25 mcg Lorazepam (Ativan) 2 mg IM Q4 PRN PRN Reason: Anxiety/Agitation,Unable PO Lorazepam (Ativan) 1 mg PO TID PRN PRN Reason: Anxiety Magnesium Hydroxide (Milk Of Magnesia) 30 ml PO HS PRN PRN Reason: Constipation Nicotine (Nicoderm Cq) 1 patch TD DAILY [facility] Last Admin: 04/13/17 09:30 Dose: 1 patch Sertraline HCl (Zoloft) 25 mg PO DAILY [facility] Last Admin: 04/13/17 09:30 Dose: 25 mg Sitagliptin Phosphate (Januvia) 100 mg PO DAILY [facility] Last Admin: 04/13/17 09:30 Dose: 100 mg Physical Exam - Constitutional Additional comments: Vitals Reviewed GEN: WDWN, ALERT, COOPERATIVE HEENT: NCAT, PERRL, EOMI HEART: RRR, +S1S2, NO MRG LUNG: CTAB, NO WRR ABD: SOFT, NT, ND, NO HSM, NO MASSES EXT: NORMAL PEDAL PULSES, GOOD CAPILLARY REFILL NEURO: AAOX3, STRENGTH EQUAL BILATERAL UPPER AND LOWER EXTREMITIES SKIN: WARM, DRY PSYCH: NORMAL MOOD, NORMAL AFFECT Results - Vital Signs Recent Vital Signs: Last Vital Signs Temp 97.3 F L 04/13/17 09:00 Pulse 94 H 04/13/17 09:00 Resp 20 04/13/17 09:00 BP 135/90 04/13/17 09:00 Pulse Ox - Labs Labs: Laboratory Results - last 24 hr 04/12/17 04/12/17 04/12/17 08:07 16:56 20:52 POC Glucose (mg/dL) 363 H 351 H RPR Nonreactive 04/13/17 04/13/17 04/13/17 07:08 12:07 13:44 POC Glucose (mg/dL) 74 > 500 H* 388 H RPR Assessment & Plan - Assessment and Plan (Free Text) Plan: 51 y/o M with a PMhx of uncontrolled DM was recently admitted for management of hyperosmolar hyperglycemic syndrome. HbA1c 12.9-elevated. 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 Pt received IV fluids, initiated on Metformin, Glipizide, Januvia and Levemir. TSH was elevated, Levothyroxine was initiated. Pt also complained of aggravating depression, having suicidal ideas. Patient now admitted to psych for depression. (1) Type 2 diabetes mellitus Glipizide, Metformin, Levemir and Januvia F/U with PMD after psych unit discharge. (2) Hypothyroidism evothyroxine 25mcg daily (3) Depression Management per Psychiatry
[2017-04-13] MEDS ORDERED: Insulin Regular 100 units/ml SC STA (14:41)
[2017-04-13 17:26] VITALS: RESP 18
[2017-04-13] MEDS: Insulin Detemir 100 Units/ml Inj SC SCH (21:18)
[2017-04-14] MEDS: Levothyroxine 25 MCG TAB PO SCH (06:09)
[2017-04-14] MEDS: Insulin Regular 100 units/ml SC SCH ×4 (08:00→21:29)
--- NOTE | 2017-04-14 14:53 | PCM.PYCHPN ---
Psychiatric Progress Note - Psychiatric Progress Note Patient seen today, length of contact: pt evaluated discussed with team chart reviewed Patient Chief Complaint: I am feeling better today Problems Identified/Issues Discussed: pt evaluated in treatment team, calmer, reported better mood, brighter affect, encouraged to attend groups denied any current suicidal or homicidal ideations, denied side effects of medications Medical Problems: pt uncooperative in giving history reported one previous psychiatric hospitalization in [facility] , would not elaborate on details DSM 5 Symptoms Update: mood disorder due to medical condition with depressive features Medication Change: No Medical Record Reviewed: Yes Mental Status Examination - Cognitive Function Orientation: Person, Place Attention: Poor Concentration: Poor Association: WNL Fund of Knowledge: Poor Decription of patient's judgement and insights: impaired insight and judgment - Mood Mood: Neutral - Affect Affect: Constricted, Depressed - Speech Speech: Loud - Formal Thought Process Formal Thought Process: Circumstantial Psychotic Thoughts and Behaviors: pt denied perceptual disturbances, non elicited - Suicidal Ideation Suicidal Ideation: No - Homicidal Ideation Homicidal Ideation: No Goal/Treatment Plan - Goal/Treatment Plan Need for Continued Stay: Discharge may exacerbated symptoms Progress Toward Problem(s) and Goals/Treatment Plan: zoloft 25mg daily neurontin 100mg bid for irritability and anxiety group and supportive therapy Estimated Date of D/C: 04/15/17
[2017-04-14 16:53] VITALS: BP 123/88; PULSE 98; TEMP 97.1
[2017-04-14] MEDS: Insulin Detemir 100 Units/ml Inj SC SCH (21:33)
[2017-04-15] MEDS: Levothyroxine 25 MCG TAB PO SCH (06:34)
--- NOTE | 2017-04-15 10:19 | PCM.PYCHDC ---
Mental Status Examination - Mental Status Examination Orientation: Person, Place Memory: Intact Mood: Neutral Affect: Broad Speech: Appropriate Attention: WNL Concentration: WNL Association: WNL Fund of Knowledge: WNL Formal Thought Process: No Impairment Description of patient's judgement and insight: partial insight fair judgment Psychotic Thoughts and Behaviors: pt denied perceptual disturbances, non elicited Suicidal Ideation: No Current Homicidal Ideation?: No Discharge Summary - Discharge Note Reason for Hospitalization: pt requested help Laboratory Data: Abnormal Lab Results 04/14/17 04/14/17 11:39 16:35 POC Glucose (mg/dL) 346 H 295 H Consultations:: List each consultation separately and include: 1. Reason for request. 2. Findings. 3. Follow-up Summary of Hospital Course include:: 1. Description of specific treatment plan utilized for patients during their course of treatmen. 2. Summarize the time- course for resolution of acute symptoms and/or regressed behaviors. 3. Describe issues identified and worked on during hospitalization. 4. Describe medication utilized. 5. Describe medical problems identified and treated. 6. Reassessment of suicide risk Summary of Hospital Course: pt was started on zoloft and neurontin CBT ,motivational and group therapy was provided no reported side effects of medication on discharge pt mental status was stable, pt denied sucidal or homicidal ideations denied perceptual disturbances. 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
[2017-04-15] MEDS: Insulin Regular 100 units/ml SC SCH ×2 (10:34→11:03)
== END 2017-04-15 15:24 | disposition home or self-care (01) | DRG 429 ==
LOC: H.PSYCH 17:07
PROVIDERS: ADMIT Psychiatry & Neurology Psychiatry; ATTEND Psychiatry & Neurology Psychiatry
PROC: HZ52ZZZ Individual Psychotherapy for Substance Abuse Treatment, Cognitive-Behavioral (ICD-10-PCS; principal; 2017-04-11)
PROC: GZHZZZZ Group Psychotherapy (ICD-10-PCS; 2017-04-11)
PROC: GZ58ZZZ Individual Psychotherapy, Cognitive-Behavioral (ICD-10-PCS; 2017-04-11)
DX: F06.31 Mood disorder due to known physiological condition with depressive features (principal); F10.14 Alcohol abuse with alcohol-induced mood disorder; E11.8 Type 2 diabetes mellitus with unspecified complications; R45.851 Suicidal ideations; F32.9 Major depressive disorder, single episode, unspecified; F41.9 Anxiety disorder, unspecified; I10 Essential (primary) hypertension; E03.9 Hypothyroidism, unspecified; F17.210 Nicotine dependence, cigarettes, uncomplicated; Z79.4 Long term (current) use of insulin; Z79.84 Long term (current) use of oral hypoglycemic drugs

== ENCOUNTER 2017-04-22 14:56 | Emergency (ER) | payer MEDICAID ==
[2017-04-22 14:56] VITALS: BMI 19.2
[2017-04-22 15:27] VITALS: TEMP 98.1
[2017-04-22] MEDS ORDERED: Sodium Chloride 0.9% 500 ML IV STA (15:52)
--- NOTE | 2017-04-22 15:52 | ED PDOC ---
Hyperglycemia/Hypoglycemia Time Seen by Provider: 04/22/17 15:49 Chief Complaint (Nursing): High Blood Sugar Chief Complaint (Provider): High blood sugar History Per: Patient History/Exam Limitations: no limitations Onset/Duration Of Symptoms: Days (30 hrs) Current Symptoms Are (Timing): Still Present : The patient does not have any of the infectious symptoms listed except for those marked. Additional Complaint(s): Pt. ran out of lantus and has increased blood sugar. Eating food in the waiting room and chocolate in the room. Pt. has mild weakness all over. No dyspnea. No nausea, vomit, diarrhea, headaches, dizziness. No abd pain. No back pain, increased urination. No abd pain. Past Medical History Vital Signs: Last Vital Signs Temp 98.1 F 04/22/17 15:24 Pulse 91 H 04/22/17 15:24 Resp 18 04/22/17 15:24 BP 140/83 04/22/17 15:24 Pulse Ox 98 04/22/17 15:24 - Medical History PMH: Diabetes (type I), HTN Denies: Kidney Stones, Chronic Kidney Disease - Surgical History Surgical History: No Surg Hx - Family History Family History: States: Unknown Family Hx - Social History Current smoker - smoking cessation education provided: No - Immunization History Hx Tetanus Toxoid Vaccination: No Hx Influenza Vaccination: No Hx Pneumococcal Vaccination: No - Home Medications Home Medications: Ambulatory Orders Medication Instructions Recorded GlipiZIDE [Glucotrol] 10 mg PO ACBD #30 tab 04/11/17 Insulin Detemir [Levemir] 20 units SC HS #1 vial 04/11/17 Levothyroxine [Synthroid] 25 mcg PO DAILY@0630 #30 tab 04/11/17 SITagliptin [Januvia] 100 mg PO DAILY #30 tab 04/11/17 metFORMIN [glucOPHAGE] 500 mg PO BIDWM #60 tab 04/11/17 Gabapentin [Neurontin] 100 mg PO BID 30 Days #30 cap 04/15/17 Sertraline [Zoloft] 25 mg PO DAILY 30 Days #30 tab 04/15/17 Insulin Lispro [Humalog (Insulin 15 unit SQ DAILY #1 vial 04/16/17 Lispro)] - Allergies Allergies/Adverse Reactions: Allergies Allergy/AdvReac Type Severity Reaction Status Date / Time No Known Allergies Allergy Verified 04/22/17 15:22 Review of Systems ROS Statement: Except As Marked, All Systems Reviewed And Found Negative Constitutional: Positive for: Weakness Neurological: Positive for: Weakness Physical Exam - Reviewed Nursing Documentation Reviewed: Yes Vital Signs Reviewed: Yes - Physical Exam Appears: Positive for: Non-toxic, No Acute Distress Head Exam: Positive for: ATRAUMATIC, NORMAL INSPECTION, NORMOCEPHALIC Skin: Positive for: Normal Color, Warm, DRY Eye Exam: Positive for: EOMI, Normal appearance, PERRL ENT: Positive for: Normal ENT Inspection Neck: Positive for: Normal, Painless ROM Cardiovascular/Chest: Positive for: Regular Rate, Rhythm Respiratory: Positive for: CNT, Normal Breath Sounds Gastrointestinal/Abdominal: Positive for: Normal Exam, Bowel Sounds, Soft. Negative for: Tenderness Back: Positive for: Normal Inspection. Negative for: L CVA Tenderness, R CVA Tenderness Extremity: Positive for: Normal ROM. Negative for: Tenderness, Pedal Edema Neurologic/Psych: Positive for: Alert, quality assistant II-XII, Oriented. Negative for: Motor/Sensory Deficits - Laboratory Results Result Diagrams: 04/22/17 16:02 04/22/17 16:02 Interpretation Of Abn Labs: 612 sugar; lactate 3.8 - ECG ECG Rhythm: Positive for: Sinus Rhythm Interpretation Of Abn EKG: PVCs O2 Sat by Pulse Oximetry: 98 Pulse Ox Interpretation: Normal - Radiology X-Ray: Read By Radiologist X-Ray Interpretation: No Acute Disease - Progress ED Course And Treament: 1714: Dr. Mazariegos to fu on labs and re-eval. Disposition - Clinical Impression Clinical Impression: Hyperglycemia - Patient ED Disposition Is Patient to be Admitted: Transfer of Care - Disposition Disposition Time: 17:16 Condition: FAIR Forms: [employer] (Welsh) Patient Signed Over To: Flash Mazariegos
--- NOTE | 2017-04-22 16:43 | RAD ---
HISTORY: dyspnea COMPARISON: Chest radiograph dated 04/09/2017. FINDINGS: LUNGS: No active pulmonary disease. PLEURA: No significant pleural effusion identified, no pneumothorax apparent. CARDIOVASCULAR: Atherosclerotic aortic calcifications. Cardiomediastinal silhouette within normal limits. OSSEOUS STRUCTURES: Unchanged. VISUALIZED UPPER ABDOMEN: Normal. OTHER FINDINGS: None. IMPRESSION: No active disease.
[2017-04-22 16:48] LABS: EOS % 0.7 % (0.0-4.0); MEAN CORPUSCULAR HEMOGLOBIN 32.3 pg (27.0-31.0); MEAN CORPUSCULAR HGB CONC 33.9 g/dL (33.0-37.0); MONO # 0.4 K/uL (0.0-0.8); NEUT # 2.9 K/uL (1.8-7.0); NRBC % 0.1 % (0.0-0.0)
[2017-04-22 16:54] LABS: VENOUS BLOOD GAS BASE EXCESS 3.2 mmol/L (0.0-2.0); VENOUS BLOOD GAS PCO2 45 mmHg (40-60); VENOUS BLOOD GAS PO2 38 mm/Hg (30-55); VENOUS BLOOD PH 7.41 (7.32-7.43)
[2017-04-22 17:01] LABS: BASO % 0.7 % (0.0-2.0); HEMOGLOBIN 12.3 g/dL (12.0-18.0); LYMPH # 1.5 K/uL (1.0-4.3); MEAN CELL VOLUME 95.1 fl (80.0-94.0); MEAN PLATELET VOLUME 8.1 fl (7.2-11.7); MONO % 8.2 % (0.0-10.0); NEUT % 59.4 % (50.0-75.0); RBC 3.82 Mil/uL (4.40-5.90); WHITE BLOOD COUNT 4.8 K/uL (4.8-10.8)
[2017-04-22 17:11] LABS: ALB/GLOB RATIO 1.6 (1.0-2.1); ALBUMIN 4.3 g/dL (3.5-5.0); ALT/SGPT 59 U/L (21-72); AST/SGOT 66 U/L (17-59); BLOOD UREA NITROGEN 17 mg/dl (9-20); CALCIUM 9.3 mg/dL (8.4-10.2); GFR AFRICAN-AMERICAN > 60; GFR NON-AFRICAN AMERICAN > 60
[2017-04-22] MEDS ORDERED: Insulin Regular 100 units/ml IV STA (17:13)
[2017-04-22] MEDS ORDERED: Sodium Chloride 0.9% 1,000 ML IV STA (17:13)
--- NOTE | 2017-04-22 17:25 | ED PDOC ---
- Laboratory Results Result Diagrams: 04/22/17 16:02 04/22/17 19:48 - ECG O2 Sat by Pulse Oximetry: 98 Medical Decision Making Medical Decision Makin:30 --Patient was endorsed to me by Dr. Bryan, pending repeat lab work, VBG, and waiting for low sugar to discharge. --Ordering more insulin and repeat VBG after insulin 19:00 --Patient will be signed out to Dr. Barney, pending repeat chemistry and VBG. Disposition - Clinical Impression Clinical Impression: Hyperglycemia - POA Present On Arrival: None - Disposition Referrals: [facility] [Outside] Disposition: Transfer of Care Disposition Time: 07:00 Condition: IMPROVED Instructions: Hyperglycemia, Adult Forms: [employer] (Japanese) Patient Signed Over To: Benito Barney
[2017-04-22] MEDS ORDERED: Insulin Regular 100 units/ml ONE ×2 (18:04→18:36)
[2017-04-22] MEDS ORDERED: Insulin Regular 100 units/ml SC STA (18:30)
[2017-04-22 18:36] LABS: URINE BILIRUBIN NEGATIVE (NEGATIVE); URINE BLOOD NEGATIVE (NEGATIVE); URINE CLARITY CLEAR (Clear); URINE COLOR STRAW (YELLOW); URINE GLUCOSE (UA) >=500 mg/dL (Normal); URINE LEUKOCYTE ESTERASE NEG Leu/uL (Negative); URINE PROTEIN NEGATIVE (NEGATIVE); URINE UROBILINOGEN 0.2-1.0 mg/dL (0.2-1.0)
--- NOTE | 2017-04-22 19:31 | ED PDOC ---
- Laboratory Results Result Diagrams: 04/22/17 16:02 04/22/17 19:48 - ECG O2 Sat by Pulse Oximetry: 98 Medical Decision Making Medical Decision Makin:00 --Patient was endorsed to me by Dr. Mazariegos, pending reevaluation and repeat blood work. 22:07 Upon provider evaluation patient is medically stable, and requires no further treatment in the ED at this time. Patient will be discharged home. Counseling was provided and all questions were answered regarding diagnosis and need for follow up. There is agreement to discharge plan. Return if symptoms persist or worsen. FS <300 at this time. Repeat bloodwork shows improvement in lactate. Will give prescription refill for patient until he can followup with PMD. Disposition - Clinical Impression Clinical Impression: Hyperglycemia - POA Present On Arrival: None - Disposition Referrals: [facility] [Outside] Disposition: Routine/Home Disposition Time: 22:07 Condition: IMPROVED Prescriptions: Insulin Detemir [Levemir] 20 units SC HS #1 vial Insulin Lispro [Humalog (Insulin Lispro)] 15 unit SQ DAILY #1 vial metFORMIN [glucOPHAGE] 500 mg PO BIDWM #60 tab Instructions: Hyperglycemia, Adult Forms: [employer] (Estonian)
[2017-04-22 19:55] LABS: VENOUS BLOOD GAS BASE EXCESS 1.1 mmol/L (0.0-2.0); VENOUS BLOOD GAS PCO2 45 mmHg (40-60); VENOUS BLOOD GAS PO2 45 mm/Hg (30-55); VENOUS BLOOD PH 7.38 (7.32-7.43)
[2017-04-22 20:30] LABS: ALB/GLOB RATIO 1.3 (1.0-2.1); ALBUMIN 3.4 g/dL (3.5-5.0); ALT/SGPT 50 U/L (21-72); AST/SGOT 46 U/L (17-59); BLOOD UREA NITROGEN 14 mg/dl (9-20); CALCIUM 8.8 mg/dL (8.4-10.2); GFR AFRICAN-AMERICAN > 60; GFR NON-AFRICAN AMERICAN > 60
[2017-04-22 21:04] VITALS: BP 135/75; PULSE 76; RESP 16
[2017-04-22 22:09] VITALS: O2SAT 98
--- NOTE | 2017-04-23 22:20 | CARD ---
APPROVED REPORT EKG Measurement Heart [id number] <Conclusion> Sinus rhythm with premature ventricular complexes Prolonged QT Abnormal ECG
== END 2017-04-22 22:32 | disposition home or self-care (01) ==
LOC: H.ER 14:56
DX: E11.65 Type 2 diabetes mellitus with hyperglycemia (principal); Z79.4 Long term (current) use of insulin; I10 Essential (primary) hypertension; I49.3 Ventricular premature depolarization; Z76.0 Encounter for issue of repeat prescription
CPT/HCPCS: 71045; 80053; 80320; 81003; 82803; 84484; 85025; 93005; 96360; 96372; 99283; J7040

== ENCOUNTER 2017-04-24 15:55 | Observation (INO) | payer MEDICAID ==
[2017-04-24 15:56] VITALS: BMI 19.2
[2017-04-24] MEDS ORDERED: Sodium Chloride 0.9% 1,000 ML IV STA ×2 (16:56→18:26)
--- NOTE | 2017-04-24 17:07 | ED PDOC ---
HPI: General Adult Time Seen by Provider: 04/24/17 16:22 Chief Complaint (Nursing): Headache Chief Complaint (Provider): Elevated Blood Sugar History Per: Patient History/Exam Limitations: no limitations Onset/Duration Of Symptoms: Days (x1 week) Current Symptoms Are (Timing): Still Present Additional Complaint(s): 51 year old male with a past medical history of diabetes, who presents to the ED complaining of elevated blood sugar x1 week. Reports his blood sugar is over 500 and he feels generalized weakness, hunger, and thirst. Patient was seen at the ED 2 days ago for a prescription refill stating he ran out of insulin. Denies fever, chest pain, vomiting, or other medical complaints. PMD: None Past Medical History Reviewed: Historical Data, Nursing Documentation, Vital Signs Vital Signs: Last Vital Signs Temp 98.5 F 04/25/17 08:00 Pulse 72 04/25/17 08:00 Resp 20 04/25/17 08:00 BP 122/67 04/25/17 08:00 Pulse Ox 98 04/25/17 08:00 - Medical History PMH: Diabetes (type I), HTN Denies: Kidney Stones, Chronic Kidney Disease - Surgical History Surgical History: No Surg Hx - Family History Family History: States: Unknown Family Hx - Living Arrangements Living Arrangements: Other (Homeless) - Social History Alcohol: None Drugs: Denies - Immunization History Hx Tetanus Toxoid Vaccination: No Hx Influenza Vaccination: No Hx Pneumococcal Vaccination: No - Home Medications Home Medications: Ambulatory Orders Medication Instructions Recorded No Known Home Med 04/24/17 - Allergies Allergies/Adverse Reactions: Allergies Allergy/AdvReac Type Severity Reaction Status Date / Time No Known Allergies Allergy Verified 04/24/17 15:59 Review of Systems ROS Statement: Except As Marked, All Systems Reviewed And Found Negative Constitutional: Positive for: Weakness. Negative for: Fever Cardiovascular: Negative for: Chest Pain Gastrointestinal: Negative for: Vomiting Physical Exam - Reviewed Nursing Documentation Reviewed: Yes Vital Signs Reviewed: Yes - Physical Exam Appears: Positive for: Non-toxic, No Acute Distress (chronically ill appearing, cachectic, disheveled) Head Exam: Positive for: ATRAUMATIC, NORMAL INSPECTION, NORMOCEPHALIC Skin: Positive for: Normal Color, Warm, Dry. Negative for: Rash Eye Exam: Positive for: EOMI, Normal appearance, PERRL Neck: Positive for: Normal, Painless ROM, Supple Cardiovascular/Chest: Positive for: Regular Rate, Rhythm. Negative for: Murmur Respiratory: Positive for: Normal Breath Sounds. Negative for: Respiratory Distress Gastrointestinal/Abdominal: Positive for: Normal Exam, Bowel Sounds, Soft. Negative for: Tenderness Back: Positive for: Normal Inspection. Negative for: L CVA Tenderness, R CVA Tenderness Extremity: Positive for: Normal ROM. Negative for: Pedal Edema, Deformity, Swelling Neurologic/Psych: Positive for: Alert, Oriented (x3) - Laboratory Results Result Diagrams: 04/25/17 04:20 04/25/17 04:20 - ECG O2 Sat by Pulse Oximetry: 98 (RA) Pulse Ox Interpretation: Normal Medical Decision Making Medical Decision Making: Time: 16:53 Initial Impression: Hyperglycemia, Dehydration, r/o DKA Initial Plan: --ABG --EKG --Alcohol Serum --CMP --Urine Drug Screen --ED Dipstick --CBC w/ differential --Sodium Chloride 0.9% 1,000 mls/hr --Reevaluation Time: 18:30 --Lung Perf and Vent Scan --Benadryl 25 mg IV --SOLU-Medrol 125 mg IVP --Reviewed labs and potassium found significant for hyperglycemia. --Discussed case with Dr. Moreno. Patient will be admitted to telemetry for diabetic hyperglycemia and uncontrolled diabetes. Scribe Attestation: Documented by Kiko Guevara, acting as a scribe for Jax Evans MD. Provider Scribe Attestation: All medical record entries made by the Scribe were at my direction and personally dictated by me. I have reviewed the chart and agree that the record accurately reflects my personal performance of the history, physical exam, medical decision making, and the department course for this patient. I have also personally directed, reviewed, and agree with the discharge instructions and disposition. Disposition - Clinical Impression Clinical Impression: Type 2 diabetes mellitus with hyperosmolar nonketotic hyperglycemia - Patient ED Disposition Is Patient to be Admitted: Yes Discussed With DrToyin: Palmira Moreno Doctor Will See Patient In The: Hospital Counseled Patient/Family Regarding: Studies Performed, Diagnosis - Disposition Disposition Time: 18:30 Condition: FAIR - Pt Status Changed To: Hospital Disposition Of: Inpatient - Admit Certification Admit to Inpatient:: After my assessment, the patient will require hospitalization for at least two midnights. This is because of the severity of symptoms shown, intensity of services needed, and/or the medical risk in this patient being treated as an outpatient. - POA Present On Arrival: Poor Glycemic Control
[2017-04-24 17:20] LABS: ABG ALLEN TEST YES; ARTERIAL BLOOD GAS HCO3 27.8 mmol/L (21-28); ARTERIAL BLOOD GAS O2 CAPACITY 15.6 mL/dL (16-24); ARTERIAL BLOOD GAS O2 CONTENT 15.5 ML/dL (15-23); ARTERIAL BLOOD GAS O2 SAT 99.2 % (95-98); ARTERIAL BLOOD GAS PCO2 42 mm/Hg (35-45); ARTERIAL BLOOD GAS PH 7.44 (7.35-7.45); ARTERIAL BLOOD GAS PO2 84 mm/Hg (80-100); ARTERIAL BLOOD GAS TCO2 29.8 mmol/L (22-28)
[2017-04-24 17:24] LABS: BASO % 0.5 % (0.0-2.0); EOS % 0.7 % (0.0-4.0); HEMOGLOBIN 12.9 g/dL (12.0-18.0); LYMPH # 1.2 K/uL (1.0-4.3); LYMPH % 22.4 % (20.0-40.0); MEAN CELL VOLUME 95.9 fl (80.0-94.0); MEAN CORPUSCULAR HEMOGLOBIN 32.4 pg (27.0-31.0); MEAN CORPUSCULAR HGB CONC 33.8 g/dL (33.0-37.0); MEAN PLATELET VOLUME 8.4 fl (7.2-11.7); MONO # 0.4 K/uL (0.0-0.8); MONO % 7.6 % (0.0-10.0); NEUT # 3.8 K/uL (1.8-7.0); NEUT % 68.8 % (50.0-75.0); NRBC % 0.1 % (0.0-0.0); RBC 3.97 Mil/uL (4.40-5.90); RED CELL DISTRIBUTION WIDTH 14.1 % (11.5-14.5); WHITE BLOOD COUNT 5.6 K/uL (4.8-10.8)
[2017-04-24 17:38] LABS: ALB/GLOB RATIO 1.4 (1.0-2.1); ALBUMIN 4.6 g/dL (3.5-5.0); ALT/SGPT 97 U/L (21-72); AST/SGOT 169 U/L (17-59); BLOOD UREA NITROGEN 16 mg/dl (9-20); CALCIUM 9.4 mg/dL (8.4-10.2); GFR AFRICAN-AMERICAN > 60; GFR NON-AFRICAN AMERICAN > 60
[2017-04-24] MEDS ORDERED: Insulin Regular 100 units/ml IV STA (18:38)
[2017-04-24 19:18] LABS: BARBITURATES, UR NEGATIVE (NEGATIVE); BENZODIAZEPINES, UR NEGATIVE (NEGATIVE); OPIATES, UR NEGATIVE (NEGATIVE); PHENCYCLIDINE, UR NEGATIVE (NEGATIVE)
[2017-04-24] MEDS ORDERED: Insulin Regular 100 units/ml ONE (19:47)
--- NOTE | 2017-04-24 20:58 | CP.PCM.HP ---
History of Present Illness - History of Present Illness History of Present Illness: A 51 year old male, a homeless person with a past medical history of diabetes type I, hypertension, was admitted for elevated blood sugar for a week. He stated that his blood sugar is over 500 and he feels generalized weakness, hunger, and thirst. Patient was seen at the ED 2 days ago for a prescription refill stating he ran out of insulin. He denies fever, chest pain, vomiting, or other medical complaints. Present on Admission - Present on Admission Any Indicators Present on Admission: No History of DVT/PE: No History of Uncontrolled Diabetes: No Urinary Catheter: No Decubitus Ulcer Present: No Review of Systems - Constitutional Constitutional: Fatigue, Weakness - EENT Eyes: absent: Blurred Vision - Cardiovascular Cardiovascular: absent: Chest Pain - Respiratory Respiratory: absent: Dyspnea - Gastrointestinal Gastrointestinal: absent: Nausea, Vomiting Past Patient History - Tetanus Immunizations Tetanus Immunization: Unknown - Past Medical History & Family History Past Medical History?: Yes - Past Social History Alcohol: None Drugs: Denies - CARDIAC Hx Hypertension: Yes - PULMONARY Hx Respiratory Disorders: No - NEUROLOGICAL Hx Neurological Disorder: No - HEENT Hx HEENT Problems: No - RENAL Hx Chronic Kidney Disease: No - ENDOCRINE/METABOLIC Hx Endocrine Disorders: Yes - HEMATOLOGICAL/ONCOLOGICAL Hx Blood Disorders: No - INTEGUMENTARY Hx Dermatological Problems: No - MUSCULOSKELETAL/RHEUMATOLOGICAL Hx Musculoskeletal Disorders: Yes Hx Falls: Yes - GASTROINTESTINAL Hx Gastrointestinal Disorders: No - GENITOURINARY/GYNECOLOGICAL Hx Genitourinary Disorders: No - PSYCHIATRIC Hx Substance Use: No - SURGICAL HISTORY Hx Surgeries: No - ANESTHESIA Hx Anesthesia: Yes Meds Allergies/Adverse Reactions: Allergies Allergy/AdvReac Type Severity Reaction Status Date / Time No Known Allergies Allergy Verified 04/24/17 15:59 Physical Exam - Constitutional Appears: No Acute Distress, Unkempt - Respiratory Exam Respiratory Exam: Clear to Auscultation Bilateral. absent: Rales, Wheezes - Cardiovascular Exam Cardiovascular Exam: REGULAR RHYTHM. absent: Systolic Murmur - GI/Abdominal Exam GI & Abdominal Exam: Normal Bowel Sounds, Soft. absent: Tenderness Results - Vital Signs Recent Vital Signs: Last Vital Signs Temp 98.2 F 04/24/17 20:49 Pulse 87 04/24/17 20:49 Resp 18 04/24/17 20:49 BP 144/85 04/24/17 20:49 Pulse Ox 99 02/22/18 20:49 - Labs Result Diagrams: 04/25/17 04:20 04/24/17 18:12 Labs: Laboratory Results - last 24 hr 04/24/17 04/24/17 04/24/17 16:57 17:02 17:02 WBC 5.6 RBC 3.97 L Hgb 12.9 Hct 38.1 MCV 95.9 H MCH 32.4 H MCHC 33.8 RDW 14.1 Plt Count 303 MPV 8.4 Neut % (Auto) 68.8 Lymph % (Auto) 22.4 Stephens % (Auto) 7.6 Eos % (Auto) 0.7 Baso % (Auto) 0.5 Neut # (Auto) 3.8 Lymph # (Auto) 1.2 Stephens # (Auto) 0.4 Eos # (Auto) 0.0 Baso # (Auto) 0.0 pCO2 42 pO2 84 HCO3 27.8 ABG pH 7.44 ABG Total CO2 29.8 H ABG O2 Saturation 99.2 H ABG O2 Content 15.5 ABG Base Excess 3.9 H ABG Hemoglobin 12.0 ABG Carboxyhemoglobin 6.5 H POC ABG HHb (Measured) 0.7 ABG Methemoglobin 1.7 ABG O2 Capacity 15.6 L Jasen Test Yes A-a O2 Difference 13.0 Hgb O2 Saturation 91.1 L FiO2 21.0 Sodium 128 L Potassium 6.4 H* D Chloride 89 L Carbon Dioxide 26 Anion Gap 19 BUN 16 Creatinine 0.4 L Est GFR ( Amer) > 60 Est GFR (Non-Af Amer) > 60 POC Glucose (mg/dL) Random Glucose 660 H* D Calcium 9.4 Total Bilirubin 1.6 H AST 169 H D ALT 97 H D Alkaline Phosphatase 234 H D Total Protein 7.8 Albumin 4.6 Globulin 3.3 Albumin/Globulin Ratio 1.4 Urine Opiates Screen Urine Methadone Screen Ur Barbiturates Screen Ur Phencyclidine Scrn Ur Amphetamines Screen U Benzodiazepines Scrn U Oth Cocaine Metabols U Cannabinoids Screen Alcohol, Quantitative 04/24/17 04/24/17 04/24/17 18:12 18:23 20:31 WBC RBC Hgb Hct MCV MCH MCHC RDW Plt Count MPV Neut % (Auto) Lymph % (Auto) Stephens % (Auto) Eos % (Auto) Baso % (Auto) Neut # (Auto) Lymph # (Auto) Stephens # (Auto) Eos # (Auto) Baso # (Auto) pCO2 pO2 HCO3 ABG pH ABG Total CO2 ABG O2 Saturation ABG O2 Content ABG Base Excess ABG Hemoglobin ABG Carboxyhemoglobin POC ABG HHb (Measured) ABG Methemoglobin ABG O2 Capacity Jasen Test A-a O2 Difference Hgb O2 Saturation FiO2 Sodium Potassium 4.5 Chloride Carbon Dioxide Anion Gap BUN Creatinine Est GFR ( Amer) Est GFR (Non-Af Amer) POC Glucose (mg/dL) 357 H Random Glucose Calcium Total Bilirubin AST ALT Alkaline Phosphatase Total Protein Albumin Globulin Albumin/Globulin Ratio Urine Opiates Screen Negative Urine Methadone Screen Negative Ur Barbiturates Screen Negative Ur Phencyclidine Scrn Negative Ur Amphetamines Screen Negative U Benzodiazepines Scrn Negative U Oth Cocaine Metabols Negative U Cannabinoids Screen Negative Alcohol, Quantitative < 10 Assessment & Plan - Assessment and Plan (Free Text) Assessment: hyperosmolar status not likely DKA uncontrolled diabetes related to non-compliance of medicines. Plan: intravenous hydration insulin sliding scale insulin endocrinology consult - Date & Time Date: 04/24/17 Time: 20:59
[2017-04-24] MEDS ORDERED: Sodium Chloride 0.9% 1,000 ML IV SCH (21:45)
[2017-04-24] MEDS ORDERED: Insulin Detemir 100 Units/ml Inj SC SCH (22:00)
[2017-04-24] MEDS: Insulin Regular 100 units/ml SC SCH ×2 (22:29→23:00)
[2017-04-25 05:59] LABS: HEMOGLOBIN 11.6 g/dL (12.0-18.0); MEAN CELL VOLUME 94.6 fl (80.0-94.0); MEAN CORPUSCULAR HEMOGLOBIN 32.6 pg (27.0-31.0); MEAN CORPUSCULAR HGB CONC 34.5 g/dL (33.0-37.0); RBC 3.55 Mil/uL (4.40-5.90); WHITE BLOOD COUNT 4.5 K/uL (4.8-10.8)
--- NOTE | 2017-04-25 06:45 | CP.PCM.PN ---
Subjective - Date & Time of Evaluation Date of Evaluation: 04/25/17 Time of Evaluation: 06:43 - Subjective Subjective: no complaint history of diabetes for four years no chest pain smokes 2-3 cigarettes a day Objective - Vital Signs/Intake and Output Vital Signs (last 24 hours): Temp Pulse Resp BP Pulse Ox 97.6 F 73 18 125/74 97 04/25/17 04:59 04/25/17 04:59 04/25/17 04:59 04/25/17 04:59 04/25/17 04:59 - Medications Medications: Current Medications Acetaminophen (Tylenol 325mg Tab) 650 mg PO Q6 PRN PRN Reason: Pain, Mild (1-3) Enoxaparin Sodium (Lovenox) 40 mg SC DAILY AVRIL PRN Reason: Protocol Sodium Chloride (Sodium Chloride 0.9%) 1,000 mls @ 80 mls/hr IV .[id number] [facility] Stop: 04/25/17 21:37 Last Admin: 04/24/17 21:50 Dose: 80 mls/hr Insulin Detemir (Levemir) 10 units SC [facility] Last Admin: 04/24/17 22:27 Dose: 10 units Insulin Human Regular (Humulin R) 0 units SC ACCU-CHECK AVRIL PRN Reason: Protocol Last Admin: 04/24/17 23:00 Dose: Not Given - Labs Labs: 04/25/17 04:20 04/24/17 18:12 - Constitutional Appears: No Acute Distress (sleeping), Unkempt - Respiratory Exam Respiratory Exam: Clear to Ausculation Bilateral. absent: Wheezes - Cardiovascular Exam Cardiovascular Exam: REGULAR RHYTHM. absent: Murmur Assessment and Plan - Assessment and Plan (Free Text) Assessment: hyperosmolar hyperglycemia uncontrolled diabetes smoking Plan: continue insulin sliding scale iv hydration
[2017-04-25 06:47] LABS: ALB/GLOB RATIO 1.2 (1.0-2.1); ALBUMIN 3.1 g/dL (3.5-5.0); ALT/SGPT 92 U/L (21-72); AMYLASE 55 U/L (30-110); AST/SGOT 92 U/L (17-59); BLOOD UREA NITROGEN 10 mg/dl (9-20); CALCIUM 8.8 mg/dL (8.4-10.2); GFR AFRICAN-AMERICAN > 60; GFR NON-AFRICAN AMERICAN > 60; HDL CHOLESTEROL 47 MG/DL (30-70)
[2017-04-25 06:51] LABS: LDL CHOLESTEROL 36 mg/dL (0-129)
[2017-04-25 08:02] VITALS: RESP 20
[2017-04-25] MEDS ORDERED: Enoxaparin 40 mg Syringe SC SCH (09:00)
[2017-04-25] MEDS: Insulin Regular 100 units/ml SC SCH (12:02)
[2017-04-25 13:04] VITALS: BP 133/89; PULSE 82; TEMP 97.9; O2SAT 97
[2017-04-25 16:25] LABS: GAMMA GLUTAMYL TRANSPEPTIDASE 163 U/L (8-78)
[2017-04-25 20:37] LABS: SQUAMOUS EPITHIAL < 1 /hpf (0-5); URINE BILIRUBIN NEGATIVE (NEGATIVE); URINE BLOOD NEGATIVE (NEGATIVE); URINE CLARITY CLEAR (Clear); URINE COLOR YELLOW (YELLOW); URINE GLUCOSE (UA) >=500 mg/dL (Normal); URINE LEUKOCYTE ESTERASE NEG Leu/uL (Negative); URINE NITRATE NEGATIVE (NEGATIVE); URINE PROTEIN NEGATIVE (NEGATIVE); URINE UROBILINOGEN 0.2-1.0 mg/dL (0.2-1.0)
--- NOTE | 2017-04-25 23:45 | CARD ---
APPROVED REPORT EKG Measurement Heart [id number] <Conclusion> Normal sinus rhythm Prolonged QT Abnormal ECG
--- NOTE | 2017-04-28 08:57 | CON ---
ENDOCRINOLOGY CONSULTATION DATE: LOCATION: Room 401. HISTORY OF PRESENT ILLNESS: This is a 51-year-old male with recent uncontrolled type 2 insulin-requiring diabetes presenting here with hyperosmolar hyperglycemic state and dehydration and is now being referred for diabetic evaluation and management. PAST MEDICAL HISTORY: History of type 2 diabetes on oral hypoglycemic therapy which he discontinued because of his current homelessness condition and also has had no recent medical followup thereof. History of hypertensive cardiovascular disease and dyslipidemia. FAMILY HISTORY: Positive for diabetes and hypertension. SOCIAL HISTORY: The patient admits to nicotine dependence and current homelessness situation as noted. REVIEW OF SYSTEMS: As mentioned above, admits to generalized body weakness with increasing bouts of dizziness and lightheadedness, worse on the day of admission. No chest pains or palpitations or PND. His oral intake is variable with nausea, dyspepsia and recent weight loss of over 10 pounds or so. He also admits to marked polyuria, nocturia and polydipsia. PHYSICAL EXAMINATION GENERAL: This is a male in no apparent distress. VITAL SIGNS: Blood pressure of 140/80, pulse of 100 beats per minute regular, temperature 98, respirations 20, height is 59 and weight is 130 pounds. HEENT: Head normocephalic. Eyes; anicteric with pink conjunctivae. Funduscopy not possible at this time. Ears, nose and throat otherwise normal. NECK: Supple. Thyroid gland is normal in size. No carotid bruits or cervical adenopathy. CARDIOPULMONARY: Some adynamic precordium. S1 and S2 is rapid and regular. LUNGS: Clear to auscultation. ABDOMEN: Flat and soft with positive bowel sounds. EXTREMITIES: No peripheral edema. Pulses are +2 bilaterally. LABORATORY DATA: His A1c is 12.1%. The latest chemistries showed a BUN of 10, sodium 136, potassium 3.7, chloride 102, CO2 of 24, glucose 228 and creatinine 0.4. His glucose levels today have ranged from 128 to 155 mg/dL. It was 434 at bedtime last night. ASSESSMENT: This is a 51-year-old male with uncontrolled and decompensated type 2 insulin-requiring diabetes presenting here with hyperosmolar hyperglycemic state and dehydration related to drug omission. PLAN OF MANAGEMENT: As discussed with the nurse practitioner at bedside, we will consider his current homelessness situation and stop all insulin therapy for now and switch him over to a combination of oral hypoglycemic drug therapy as indicated. We will start him with metformin given as 500 mg b.i.d. and glipizide given as 10 mg b.i.d. before meals as ordered. We will hold off the Januvia medication because of his current financial constraints and expensive cost of the medication. We will refer him to the [facility] for ongoing medical and outpatient for followup. We will obtain serial chemistries and supplement accordingly needed. Brissa Blue MD
== END 2017-04-25 14:23 | disposition home or self-care (01) ==
LOC: H.ER 15:55 → INTOOBSV 18:31 → H.ERHOLD 18:31 → H.TEL 20:39
PROVIDERS: ADMIT Internal Medicine; ATTEND Internal Medicine
DX: E11.00 Type 2 diabetes mellitus with hyperosmolarity without nonketotic hyperglycemic-hyperosmolar coma (NKHHC) (principal); E11.9 Type 2 diabetes mellitus without complications; E78.5 Hyperlipidemia, unspecified; E86.0 Dehydration; F17.200 Nicotine dependence, unspecified, uncomplicated; I11.9 Hypertensive heart disease without heart failure; Z59.0 Homelessness; Z79.4 Long term (current) use of insulin; Z91.19 Patient's noncompliance with other medical treatment and regimen; Z79.84 Long term (current) use of oral hypoglycemic drugs
CPT/HCPCS: 36415; 36600; 80053; 80061; 80320; 80324; 80345; 80346; 80349; 80353; 80358; 80361; 81003; 82150; 82803; 82948; 82977; 83036; 83992; 84132; 85025; 85027; 93005; 96372; 99285; G0378; J1650; J7040

== ENCOUNTER 2017-04-25 18:06 | Emergency (ER) | payer MEDICAID ==
[2017-04-25 18:28] VITALS: BMI 23.6
[2017-04-25] MEDS ORDERED: Sodium Chloride 0.9% 1,000 ML IV STA (18:45)
--- NOTE | 2017-04-25 18:46 | ED PDOC ---
Hyperglycemia/Hypoglycemia Time Seen by Provider: 04/25/17 18:31 Chief Complaint (Nursing): Altered Mental Status Chief Complaint (Provider): Hyperglycemia History Per: Patient History/Exam Limitations: no limitations Onset/Duration Of Symptoms: Days Current Symptoms Are (Timing): Still Present Causative (Exacerbating) Factor(s): Missed Taking Medication Associated Infectious Symptoms: Nausea : The patient does not have any of the infectious symptoms listed except for those marked. Additional Complaint(s): Agus Cruz is a 51 y/o male brought to the ER by EMS. Patient states he called 911 because his diabetes was out of control. Upon arrival, patient requesting food. States he is not taking any medications for diabetes. Reports feeling nauseous but denies any abdominal pain, vomiting, diarrhea, headache, weakness, dizziness, chest pain, or shortness of breath. Patient states he is urinating normally. PMD: none Past Medical History Reviewed: Historical Data, Nursing Documentation, Vital Signs Vital Signs: Last Vital Signs Temp 96.6 F L 04/25/17 18:11 Pulse 76 04/25/17 18:11 Resp 19 04/25/17 18:11 BP 131/69 04/25/17 18:37 Pulse Ox 95 04/25/17 18:11 - Medical History PMH: Depression, Diabetes (type I), HTN Denies: HIV, Kidney Stones, Chronic Kidney Disease - Family History Family History: States: Unknown Family Hx - Social History Current smoker - smoking cessation education provided: Yes Alcohol: None Drugs: Denies - Immunization History Hx Tetanus Toxoid Vaccination: No Hx Influenza Vaccination: No Hx Pneumococcal Vaccination: No - Home Medications Home Medications: Ambulatory Orders Medication Instructions Recorded GlipiZIDE [Glucotrol] 2.5 mg PO ACB #60 tab 04/25/17 metFORMIN [glucOPHAGE] 500 mg PO BID #60 tab 04/25/17 - Allergies Allergies/Adverse Reactions: Allergies Allergy/AdvReac Type Severity Reaction Status Date / Time No Known Allergies Allergy Verified 04/24/17 15:59 Review of Systems ROS Statement: Except As Marked, All Systems Reviewed And Found Negative Constitutional: Negative for: Fever, Chills ENT: Negative for: Other (polydipsia) Cardiovascular: Negative for: Chest Pain Respiratory: Negative for: Shortness of Breath Gastrointestinal: Negative for: Vomiting, Abdominal Pain, Diarrhea Genitourinary Male: Negative for: Frequency, Other (polyuria) Neurological: Negative for: Weakness, Numbness, Headache, Dizziness Physical Exam - Reviewed Nursing Documentation Reviewed: Yes Vital Signs Reviewed: Yes - Physical Exam Appears: Positive for: Well, Non-toxic, No Acute Distress Head Exam: Positive for: ATRAUMATIC, NORMAL INSPECTION, NORMOCEPHALIC Skin: Positive for: Normal Color, Warm, Dry Eye Exam: Positive for: EOMI, Normal appearance, PERRL Neck: Positive for: Normal, Painless ROM, Supple Cardiovascular/Chest: Positive for: Regular Rate, Rhythm. Negative for: Murmur Respiratory: Positive for: Normal Breath Sounds. Negative for: Accessory Muscle Use, Respiratory Distress Gastrointestinal/Abdominal: Positive for: Normal Exam, Soft. Negative for: Tenderness Back: Positive for: Normal Inspection. Negative for: Vertebral Tenderness Extremity: Positive for: Normal ROM. 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 Negative for: Motor/Sensory Deficits - Laboratory Results Result Diagrams: 04/25/17 19:49 04/25/17 19:49 - ECG ECG: Positive for: Interpreted By Me, Viewed By Me ECG Rhythm: Positive for: Normal QRS, Normal ST Segment, Sinus Rhythm O2 Sat by Pulse Oximetry: 95 (RA) Pulse Ox Interpretation: Normal Medical Decision Making Medical Decision Making: Time: 18:46 Initial Plan: * EKG * Alcohol serum * Troponin I * CMP * CBC * IV fluids Scribe Attestation: Documented by Steph Holder, acting as a scribe for Emanuel Bryan MD Provider Scribe Attestation: All medical record entries made by the Scribe were at my direction and personally dictated by me. I have reviewed the chart and agree that the record accurately reflects my personal performance of the history, physical exam, medical decision making, and the department course for this patient. I have also personally directed, reviewed, and agree with the discharge instructions and disposition. Disposition - Clinical Impression Clinical Impression: Hyperglycemia - Patient ED Disposition Is Patient to be Admitted: No Counseled Patient/Family Regarding: Studies Performed, Diagnosis, Need For Followup - Disposition Referrals: [facility] [Outside] - 04/28/17 Disposition: Routine/Home Disposition Time: 20:22 Condition: STABLE Additional Instructions: Return if not better in 3 days. Instructions: Hyperglycemia, Adult
[2017-04-25 20:01] LABS: BASO # 0.1 K/uL (0.0-0.2); BASO % 2.5 % (0.0-2.0); EOS % 0.8 % (0.0-4.0); HEMOGLOBIN 12.8 g/dL (12.0-18.0); LYMPH # 1.5 K/uL (1.0-4.3); LYMPH % 29.2 % (20.0-40.0); MEAN CELL VOLUME 96.8 fl (80.0-94.0); MEAN CORPUSCULAR HEMOGLOBIN 32.8 pg (27.0-31.0); MEAN CORPUSCULAR HGB CONC 33.9 g/dL (33.0-37.0); MEAN PLATELET VOLUME 8.7 fl (7.2-11.7); MONO # 0.3 K/uL (0.0-0.8); MONO % 6.9 % (0.0-10.0); NEUT # 3.1 K/uL (1.8-7.0); NEUT % 60.6 % (50.0-75.0); NRBC % 0.2 % (0.0-0.0); RBC 3.89 Mil/uL (4.40-5.90); RED CELL DISTRIBUTION WIDTH 14.3 % (11.5-14.5); WHITE BLOOD COUNT 5.1 K/uL (4.8-10.8)
[2017-04-25 20:16] LABS: ALB/GLOB RATIO 1.3 (1.0-2.1); ALBUMIN 3.6 g/dL (3.5-5.0); ALT/SGPT 91 U/L (21-72); AST/SGOT 78 U/L (17-59); BLOOD UREA NITROGEN 11 mg/dl (9-20); CALCIUM 8.6 mg/dL (8.4-10.2); GFR AFRICAN-AMERICAN > 60; GFR NON-AFRICAN AMERICAN > 60
[2017-04-25 21:15] VITALS: BP 131/93; PULSE 88; RESP 18; TEMP 97.6; O2SAT 99
--- NOTE | 2017-04-26 19:13 | CARD ---
APPROVED REPORT EKG Measurement Heart [id number] <Conclusion> Normal sinus rhythm Prolonged QT Abnormal ECG
== END 2017-04-25 21:15 | disposition home or self-care (01) ==
LOC: H.ER 18:06
DX: E11.65 Type 2 diabetes mellitus with hyperglycemia (principal); Z79.4 Long term (current) use of insulin; F32.9 Major depressive disorder, single episode, unspecified; I10 Essential (primary) hypertension
CPT/HCPCS: 80053; 80320; 82948; 84484; 85025; 93005; 96360; 99285; J7040

== ENCOUNTER 2017-04-28 09:51 | Emergency (ER) | payer MEDICAID ==
[2017-04-28 09:51] VITALS: BMI 23.6
[2017-04-28] MEDS ORDERED: Sodium Chloride 0.9% 1,000 ML IV STA ×2 (10:14→11:29)
--- NOTE | 2017-04-28 10:38 | ED PDOC ---
Hyperglycemia/Hypoglycemia Time Seen by Provider: 04/28/17 10:03 Chief Complaint (Nursing): High Blood Sugar Chief Complaint (Provider): High Blood Sugar History Per: Patient History/Exam Limitations: no limitations Current Symptoms Are (Timing): Still Present : The patient does not have any of the infectious symptoms listed except for those marked. Additional Complaint(s): Mr. Goldsmith is an undomiciled 51 year old male who presents to the ED via EMS for elevated blood sugar. Patient has elevated blood sugar all the time due to not having medications. Patient is supposed to be on insulin and diabetic pills, but is not taking medications. Patient was admitted here for hyperglycemia in this hospital. Even after being discharged, patient did not fill prescriptions. Patient does not specify why he did not fill his prescriptions. Patient reports generalized weakness and not feeling well. Denies diarrhea, chest pain, headache , fever, vomiting, diarrhea or abdominal pain. Patient also reports not having PCP. Patient has a history of knee surgery and diabetes. PMD: No Provider Past Medical History Reviewed: Historical Data, Nursing Documentation, Vital Signs Vital Signs: Last Vital Signs Temp 97.6 F 04/28/17 09:54 Pulse 95 H 04/28/17 09:54 Resp 17 04/28/17 09:54 BP 103/73 04/28/17 09:54 Pulse Ox 100 04/28/17 09:54 - Medical History PMH: Depression, Diabetes (type I), HTN Denies: HIV, Kidney Stones, Chronic Kidney Disease - Surgical History Other surgeries: Knee Surgery - Family History Family History: States: Unknown Family Hx - Living Arrangements Living Arrangements: Other (undomiciled) - Social History Current smoker - smoking cessation education provided: Yes Alcohol: None - Immunization History Hx Tetanus Toxoid Vaccination: No Hx Influenza Vaccination: No Hx Pneumococcal Vaccination: No - Home Medications Home Medications: Ambulatory Orders Medication Instructions Recorded GlipiZIDE [Glucotrol] 2.5 mg PO ACB #60 tab 04/25/17 metFORMIN [glucOPHAGE] 500 mg PO BID #60 tab 04/25/17 - Allergies Allergies/Adverse Reactions: Allergies Allergy/AdvReac Type Severity Reaction Status Date / Time No Known Allergies Allergy Verified 04/24/17 15:59 Review of Systems ROS Statement: Except As Marked, All Systems Reviewed And Found Negative Constitutional: Positive for: Weakness (Generalized). Negative for: Fever Cardiovascular: Negative for: Chest Pain Gastrointestinal: Negative for: Vomiting, Abdominal Pain, Diarrhea Neurological: Negative for: Headache Physical Exam - Reviewed Nursing Documentation Reviewed: Yes Vital Signs Reviewed: Yes - Physical Exam Appears: Positive for: No Acute Distress (Disheveled) Head Exam: Positive for: ATRAUMATIC, NORMAL INSPECTION, NORMOCEPHALIC Skin: Positive for: Normal Color, Warm, Dry Eye Exam: Positive for: Normal appearance, EOMI, PERRL ENT: Positive for: Normal ENT Inspection Neck: Positive for: Normal Cardiovascular/Chest: Positive for: Regular Rate, Rhythm Respiratory: Positive for: Normal Breath Sounds. Negative for: Accessory Muscle Use, Respiratory Distress Gastrointestinal/Abdominal: Positive for: Normal Exam, Soft. 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 Negative for : Motor/Sensory Deficits - Laboratory Results Result Diagrams: 04/28/17 10:42 04/28/17 10:42 - ECG O2 Sat by Pulse Oximetry: 100 (RA) Pulse Ox Interpretation: Normal - Progress Re-evaluation Time: 14:42 Condition: Re-examined, Improved Medical Decision Making Medical Decision Making: Impression(s): diabetic hyperglycemia and Dehydration Differentials include, but not limited to: DKA Plan: - BMP - ED Urine Dipstick - CBC - Sodium Chloride 0.9% 1,000 ml IV 1,000 mls/hr Time: 11:29 - HumuLIN R 10 units IV STAT - Sodium Chloride 0.9% 1,000 ml IV 1,000 mls/hr Scribe Attestation: Documented by Gerry Keyes, acting as a scribe for Jax Evans MD. Provider Scribe Attestation: All medical record entries made by the Scribe were at my direction and personally dictated by me. I have reviewed the chart and agree that the record accurately reflects my personal performance of the history, physical exam, medical decision making, and the department course for this patient. I have also personally directed, reviewed, and agree with the discharge instructions and disposition. Disposition - Clinical Impression Clinical Impression: Hyperglycemia, Diabetic complication - Patient ED Disposition Is Patient to be Admitted: No Doctor Will See Patient In The: Office Counseled Patient/Family Regarding: Studies Performed, Diagnosis, Need For Followup - Disposition Referrals: [facility] [Outside] Disposition: Routine/Home Disposition Time: 14:42 Condition: GOOD Additional Instructions: Take your medications as instructed. Follow up with your PCP in 2 days. Instructions: Diabetes Type 2 (DC)
[2017-04-28 11:04] LABS: BASO # 0.2 K/uL (0.0-0.2); EOS % 0.6 % (0.0-4.0); HEMOGLOBIN 12.5 g/dL (12.0-18.0); LYMPH # 1.2 K/uL (1.0-4.3); LYMPH % 22.9 % (20.0-40.0); MEAN CELL VOLUME 95.2 fl (80.0-94.0); MEAN CORPUSCULAR HEMOGLOBIN 32.3 pg (27.0-31.0); MEAN CORPUSCULAR HGB CONC 33.9 g/dL (33.0-37.0); MEAN PLATELET VOLUME 8.7 fl (7.2-11.7); MONO # 0.4 K/uL (0.0-0.8); MONO % 7.3 % (0.0-10.0); NEUT # 3.4 K/uL (1.8-7.0); NEUT % 65.7 % (50.0-75.0); NRBC % 0.1 % (0.0-0.0); PLATELET COUNT 291 K/uL (130-400); RBC 3.89 Mil/uL (4.40-5.90); WHITE BLOOD COUNT 5.1 K/uL (4.8-10.8)
[2017-04-28 11:15] LABS: BLOOD UREA NITROGEN 10 mg/dl (9-20); CALCIUM 8.9 mg/dL (8.4-10.2); GFR AFRICAN-AMERICAN > 60; GFR NON-AFRICAN AMERICAN > 60
[2017-04-28 11:28] LABS: BASO % 3.5 % (0.0-2.0)
[2017-04-28] MEDS ORDERED: Insulin Regular 100 units/ml IV STA ×3 (11:29→12:57)
[2017-04-28] MEDS ORDERED: Insulin Regular 100 units/ml ONE (11:46)
[2017-04-28 14:06] LABS: BASOPHIL 3 % (0-2); LYMPHOCYTE 24 % (20-50); MONOCYTE 5 % (0-10); NEUTROPHIL 68 % (42-75); PLATELET ESTIMATE NORMAL (NORMAL); TOTAL CELLS COUNTED 100
[2017-04-28 17:17] VITALS: BP 110/66; PULSE 88; RESP 18; TEMP 98.2; O2SAT 96
== END 2017-04-28 17:16 | disposition home or self-care (01) ==
LOC: H.ER 09:51
DX: E11.65 Type 2 diabetes mellitus with hyperglycemia (principal); Z79.4 Long term (current) use of insulin; I10 Essential (primary) hypertension; F32.9 Major depressive disorder, single episode, unspecified; E86.0 Dehydration
CPT/HCPCS: 80048; 85025; 99284; J7040

== ENCOUNTER 2017-04-29 02:24 | Emergency (ER) | payer MEDICAID ==
[2017-04-29 02:25] VITALS: BMI 23.6
[2017-04-29 02:50] VITALS: PULSE 78; TEMP 98.7
[2017-04-29] MEDS ORDERED: Insulin Regular 100 units/ml SC STA (03:10)
[2017-04-29 03:21] VITALS: BP 138/78; RESP 16; O2SAT 97
[2017-04-29 03:49] LABS: SQUAMOUS EPITHIAL < 1 /hpf (0-5); URINE BILIRUBIN NEGATIVE (NEGATIVE); URINE BLOOD NEGATIVE (NEGATIVE); URINE CLARITY CLEAR (Clear); URINE COLOR STRAW (YELLOW); URINE GLUCOSE (UA) >=500 mg/dL (Normal); URINE LEUKOCYTE ESTERASE NEG Leu/uL (Negative); URINE PROTEIN NEGATIVE (NEGATIVE); URINE UROBILINOGEN 0.2-1.0 mg/dL (0.2-1.0)
--- NOTE | 2017-04-29 04:38 | ED PDOC ---
Hyperglycemia/Hypoglycemia Time Seen by Provider: 04/29/17 02:47 Chief Complaint (Nursing): High Blood Sugar Chief Complaint (Provider): Hyperglycemia History Per: Patient History/Exam Limitations: no limitations Current Symptoms Are (Timing): Still Present Current Diabetic Medications: Insulin Causative (Exacerbating) Factor(s): Missed Taking Medication : The patient does not have any of the infectious symptoms listed except for those marked. Treatment Prior To Provider Evaluation: None Additional Complaint(s): 51 year old male presents to ED status post missed diabetes medication and has a past medical history of IDDM. Patient notes that he forgot to take his insulin and "likes to forget". Patient notes no other complaints at this time, but requests blankets, food, and for the lights to be turned off. PCP: None Past Medical History Reviewed: Historical Data, Nursing Documentation, Vital Signs Vital Signs: Last Vital Signs Temp 98.7 F 04/29/17 02:46 Pulse 78 04/29/17 02:46 Resp 16 04/29/17 03:19 BP 138/78 04/29/17 03:19 Pulse Ox 97 04/29/17 03:19 - Medical History PMH: Depression, Diabetes (type I), HTN Denies: HIV, Kidney Stones, Chronic Kidney Disease - Family History Family History: States: Unknown Family Hx - Social History Alcohol: None Drugs: Denies - Immunization History Hx Tetanus Toxoid Vaccination: No Hx Influenza Vaccination: No Hx Pneumococcal Vaccination: No - Home Medications Home Medications: Ambulatory Orders Medication Instructions Recorded GlipiZIDE [Glucotrol] 2.5 mg PO ACB #60 tab 04/28/17 metFORMIN [glucOPHAGE] 500 mg PO BID #60 tab 04/28/17 - Allergies Allergies/Adverse Reactions: Allergies Allergy/AdvReac Type Severity Reaction Status Date / Time No Known Allergies Allergy Verified 04/29/17 02:50 Review of Systems ROS Statement: Except As Marked, All Systems Reviewed And Found Negative ( denies all complaints at this time) Physical Exam - Reviewed Nursing Documentation Reviewed: Yes Vital Signs Reviewed: Yes - Physical Exam Appears: Positive for: Non-toxic, No Acute Distress. Negative for: Well ( chronically-ill appearing) Skin: Positive for: Normal Color, Warm, Dry Eye Exam: Positive for: Normal appearance ENT: Positive for: Normal ENT Inspection Neck: Positive for: Normal, Painless ROM, Supple Cardiovascular/Chest: Positive for: Regular Rate, Rhythm. Negative for: Murmur Respiratory: Positive for: Normal Breath Sounds. Negative for: Respiratory Distress Gastrointestinal/Abdominal: Positive for: Normal Exam, Soft. Negative for: Tenderness Back: Positive for: Normal Inspection Extremity: Positive for: Normal ROM. Negative for: Deformity Neurologic/Psych: Positive for: Alert, Oriented. Negative for: Motor/Sensory Deficits - Laboratory Results Result Diagrams: 04/29/17 05:00 04/29/17 05:00 - ECG O2 Sat by Pulse Oximetry: 97 (RA) Pulse Ox Interpretation: Normal Medical Decision Making Medical Decision Makin Initial impression: hyperglycemia in non-compliant diabetic Initial plan: * UA 0310 * Humulin R 20 units SC 0445 * Humulin R 20 units SC * VBG * Labs * NS IV 0512 * Acetaminophen 650mg PO * Re-eval 0630 * ABG 0650 Upon re-evaluation patient is stable for discharge. Labs show no clinically significant abnormalities and glucose level has been brought down from 500+ to 91. Return precautions provided to patient, and counseled patient against skipping doses of diabetes medication. Spoke with FP residents about reaching out to patient for urgent followup as patient has hx of poor compliance with DM medications. Scribe Attestation: Documented by Kelly Waldrop acting as a scribe for Benito Barney MD. Scribe Attestation: All medical record entries made by the Scribe were at my direction and personally dictated by me. I have reviewed the chart and agree that the record accurately reflects my personal performance of the history, physical exam, medical decision making, and the department course for this patient. I have also personally directed, reviewed, and agree with the discharge instructions and disposition. Disposition - Clinical Impression Clinical Impression: Hyperglycemia - Disposition Referrals: [facility] [Outside] Disposition: Routine/Home Disposition Time: 06:50 Condition: IMPROVED Instructions: Hyperglycemia, Adult Forms: [facility] (Portuguese)
[2017-04-29] MEDS ORDERED: Sodium Chloride 0.9% 1,000 ML IV STA (04:47)
[2017-04-29] MEDS ORDERED: Insulin Regular 100 units/ml IV STA (04:47)
[2017-04-29] MEDS ORDERED: Insulin Regular 100 units/ml ONE (05:08)
[2017-04-29 05:25] LABS: VENOUS BLOOD GAS PCO2 45 mmHg (40-60); VENOUS BLOOD GAS PO2 36 mm/Hg (30-55); VENOUS BLOOD PH 7.38 (7.32-7.43)
[2017-04-29 05:39] LABS: CALCIUM 9.2 mg/dL (8.4-10.2); GFR AFRICAN-AMERICAN > 60; GFR NON-AFRICAN AMERICAN > 60
[2017-04-29 05:51] LABS: HEMOGLOBIN 12.9 g/dL (12.0-18.0); MEAN CELL VOLUME 95.1 fl (80.0-94.0); MEAN CORPUSCULAR HEMOGLOBIN 32.3 pg (27.0-31.0); RED CELL DISTRIBUTION WIDTH 14.2 % (11.5-14.5)
[2017-04-29 06:06] LABS: BLOOD UREA NITROGEN 8 mg/dl (9-20)
[2017-04-29 06:41] LABS: ABG ALLEN TEST YES; ARTERIAL BLOOD GAS HCO3 26.9 mmol/L (21-28); ARTERIAL BLOOD GAS O2 SAT 100.1 % (95-98); ARTERIAL BLOOD GAS PCO2 37 mm/Hg (35-45); ARTERIAL BLOOD GAS PH 7.46 (7.35-7.45); ARTERIAL BLOOD GAS PO2 106 mm/Hg (80-100); ARTERIAL BLOOD GAS TCO2 27.4 mmol/L (22-28)
== END 2017-04-29 07:15 | disposition home or self-care (01) ==
LOC: H.ER 02:24
DX: E11.9 Type 2 diabetes mellitus without complications (principal); E11.65 Type 2 diabetes mellitus with hyperglycemia; I10 Essential (primary) hypertension; Z86.59 Personal history of other mental and behavioral disorders; Z79.4 Long term (current) use of insulin; Z91.19 Patient's noncompliance with other medical treatment and regimen
CPT/HCPCS: 36600; 80048; 81003; 82803; 82948; 85027; 96360; 96372; 99283; J7040

== ENCOUNTER 2017-04-29 21:21 | Emergency (ER) | payer MEDICAID ==
[2017-04-29 21:22] VITALS: BMI 23.6
[2017-04-29 21:26] VITALS: BP 145/87; PULSE 88; RESP 16; TEMP 97.9; O2SAT 100
[2017-04-29] MEDS ORDERED: Insulin Regular 100 units/ml IV ONE (22:09)
[2017-04-29] MEDS ORDERED: Sodium Chloride 0.9% 1,000 ML IV STA (22:09)
--- NOTE | 2017-04-29 22:21 | ED PDOC ---
Hyperglycemia/Hypoglycemia Time Seen by Provider: 04/29/17 22:09 Chief Complaint (Nursing): Dizziness/Lightheaded Chief Complaint (Provider): Dizziness/Lightheaded History Per: Patient History/Exam Limitations: no limitations Onset/Duration Of Symptoms: Hrs (x 3) Current Symptoms Are (Timing): Still Present : The patient does not have any of the infectious symptoms listed except for those marked. Additional Complaint(s): 51 year old male with a medical history of diabetes presents to the ED complaining of high blood sugar, onset a few hours (<three) ago. Patient was seen in the ED earlier this morning. He was discharged home with an arrangement made for rapid follow up in the [facility]. Patient returned with questionable compliance of medications and claims to have blood sugar over 500. Denies homelessness, chest pain, diaphoresis. PMD: none provided Past Medical History Reviewed: Historical Data, Nursing Documentation, Vital Signs Vital Signs: Last Vital Signs Temp 97.9 F 04/29/17 21:24 Pulse 88 04/29/17 21:24 Resp 16 04/29/17 21:24 BP 145/87 04/29/17 21:24 Pulse Ox 100 04/29/17 21:24 - Medical History PMH: Depression, Diabetes (type I), HTN Denies: HIV, Kidney Stones, Chronic Kidney Disease - Surgical History Surgical History: No Surg Hx - Family History Family History: States: Unknown Family Hx - Immunization History Hx Tetanus Toxoid Vaccination: No Hx Influenza Vaccination: No Hx Pneumococcal Vaccination: No - Home Medications Home Medications: Ambulatory Orders Medication Instructions Recorded GlipiZIDE [Glucotrol] 2.5 mg PO ACB #60 tab 04/28/17 metFORMIN [glucOPHAGE] 500 mg PO BID #60 tab 04/28/17 - Allergies Allergies/Adverse Reactions: Allergies Allergy/AdvReac Type Severity Reaction Status Date / Time No Known Allergies Allergy Verified 04/29/17 21:24 Review of Systems ROS Statement: Except As Marked, All Systems Reviewed And Found Negative Constitutional: Positive for: Other (high blood sugar). Negative for: Sweats Cardiovascular: Negative for: Chest Pain Neurological: Positive for: Dizziness Physical Exam - Reviewed Nursing Documentation Reviewed: Yes Vital Signs Reviewed: Yes - Physical Exam Appears: Positive for: Non-toxic, No Acute Distress Head Exam: Positive for: ATRAUMATIC, NORMOCEPHALIC Skin: Positive for: Normal Color, Warm, Dry Eye Exam: Positive for: EOMI, Normal appearance, PERRL Neck: Positive for: Normal, Painless ROM, Supple Cardiovascular/Chest: Positive for: Regular Rate, Rhythm. Negative for: Murmur Respiratory: Positive for: Normal Breath Sounds. Negative for: Respiratory Distress Gastrointestinal/Abdominal: Positive for: Normal Exam, Soft Back: Positive for: Normal Inspection. Negative for: L CVA Tenderness, R CVA Tenderness, Vertebral Tenderness Extremity: Positive for: Normal ROM. Negative for: Deformity Neurologic/Psych: Positive for: Alert, Oriented. Negative for: Motor/Sensory Deficits - Laboratory Results Result Diagrams: 04/29/17 23:37 04/29/17 23:37 - ECG O2 Sat by Pulse Oximetry: 100 (RA) Pulse Ox Interpretation: Normal Medical Decision Making Medical Decision Making: Time: 22:09 Impression: 51 year old male with hyperglycemia in setting of known diabetes Initial Plan: --Urine dip --CMP --CBC with differentials --Regular Human Insulin 10 units IV --Metformin 1,000 mg PO --Urinalysis Patient requires no further treatment in the ED at the time. Will be discharged home. Scribe Attestation: Documented by Radha Lawson, acting as a scribe for Damon Beaver MD. Provider Scribe Attestation: All medical record entries made by the Scribe were at my direction and personally dictated by me. I have reviewed the chart and agree that the record accurately reflects my personal performance of the history, physical exam, medical decision making, and the department course for this patient. I have also personally directed, reviewed, and agree with the discharge instructions and disposition. Disposition - Clinical Impression Clinical Impression: Hyperglycemia - Patient ED Disposition Is Patient to be Admitted: No - Disposition Referrals: [facility] [Outside] Disposition: Routine/Home Disposition Time: 05:35 Condition: STABLE Instructions: Hyperglycemia, Adult Forms: [facility] (Mongolian)
[2017-04-29] MEDS ORDERED: Insulin Regular 100 units/ml ONE (23:34)
[2017-04-29 23:44] LABS: BASO # 0.1 K/uL (0.0-0.2); BASO % 2.3 % (0.0-2.0); EOS % 0.9 % (0.0-4.0); HEMOGLOBIN 12.2 g/dL (12.0-18.0); LYMPH # 1.4 K/uL (1.0-4.3); LYMPH % 25.7 % (20.0-40.0); MEAN CORPUSCULAR HEMOGLOBIN 32.5 pg (27.0-31.0); MEAN CORPUSCULAR HGB CONC 33.9 g/dL (33.0-37.0); MEAN PLATELET VOLUME 8.5 fl (7.2-11.7); MONO # 0.5 K/uL (0.0-0.8); MONO % 8.5 % (0.0-10.0); NEUT # 3.4 K/uL (1.8-7.0); NEUT % 62.6 % (50.0-75.0); NRBC % 0.1 % (0.0-0.0); RBC 3.77 Mil/uL (4.40-5.90); RED CELL DISTRIBUTION WIDTH 14.4 % (11.5-14.5); WHITE BLOOD COUNT 5.4 K/uL (4.8-10.8)
[2017-04-30 00:01] LABS: ALB/GLOB RATIO 1.4 (1.0-2.1); ALBUMIN 3.8 g/dL (3.5-5.0); ALT/SGPT 95 U/L (21-72); AST/SGOT 76 U/L (17-59); BLOOD UREA NITROGEN 10 mg/dl (9-20); CALCIUM 9.1 mg/dL (8.4-10.2); GFR AFRICAN-AMERICAN > 60; GFR NON-AFRICAN AMERICAN > 60
[2017-04-30 00:07] LABS: SQUAMOUS EPITHIAL < 1 /hpf (0-5); URINE BILIRUBIN NEGATIVE (NEGATIVE); URINE BLOOD NEGATIVE (NEGATIVE); URINE CLARITY CLEAR (Clear); URINE COLOR STRAW (YELLOW); URINE GLUCOSE (UA) >=500 mg/dL (Normal); URINE LEUKOCYTE ESTERASE NEG Leu/uL (Negative); URINE PROTEIN NEGATIVE (NEGATIVE); URINE UROBILINOGEN 0.2-1.0 mg/dL (0.2-1.0)
== END 2017-04-30 05:41 | disposition home or self-care (01) ==
LOC: H.ER 21:21
DX: E11.65 Type 2 diabetes mellitus with hyperglycemia (principal); I10 Essential (primary) hypertension; Z79.4 Long term (current) use of insulin; Z86.59 Personal history of other mental and behavioral disorders
CPT/HCPCS: 80053; 81003; 82948; 85025; 99283; J7040

== ENCOUNTER 2017-05-01 16:46 | Emergency (ER) | payer MEDICAID ==
[2017-05-01 16:46] VITALS: BMI 23.6
[2017-05-01 16:53] VITALS: RESP 16
[2017-05-01] MEDS ORDERED: Sodium Chloride 0.9% 1,000 ML IV STA ×3 (17:00→18:25)
--- NOTE | 2017-05-01 17:44 | ED PDOC ---
Hyperglycemia/Hypoglycemia Time Seen by Provider: 05/01/17 16:56 Chief Complaint (Nursing): Weakness/Neurological Deficit Chief Complaint (Provider): Generalized weakness History Per: Patient : The patient does not have any of the infectious symptoms listed except for those marked. Additional Complaint(s): Pt reports generalized weakness, has not eaten today. Of note, this is pt's 10th ED visit in one month for similar complaints. Past Medical History Reviewed: Nursing Documentation, Vital Signs Vital Signs: Last Vital Signs Temp 98.0 F 05/01/17 16:49 Pulse 88 05/01/17 16:49 Resp 16 05/01/17 16:49 BP 123/86 05/01/17 16:49 Pulse Ox 97 05/01/17 16:49 - Medical History PMH: Depression, Diabetes (type I), HTN Denies: HIV, Kidney Stones, Chronic Kidney Disease - Family History Family History: States: Unknown Family Hx - Immunization History Hx Tetanus Toxoid Vaccination: No Hx Influenza Vaccination: No Hx Pneumococcal Vaccination: No - Home Medications Home Medications: Ambulatory Orders Medication Instructions Recorded GlipiZIDE [Glucotrol] 2.5 mg PO ACB #60 tab 04/28/17 metFORMIN [glucOPHAGE] 500 mg PO BID #60 tab 04/28/17 - Allergies Allergies/Adverse Reactions: Allergies Allergy/AdvReac Type Severity Reaction Status Date / Time No Known Allergies Allergy Verified 05/01/17 16:48 Review of Systems ROS Statement: Except As Marked, All Systems Reviewed And Found Negative Constitutional: Positive for: Weakness Physical Exam - Reviewed Nursing Documentation Reviewed: Yes Vital Signs Reviewed: Yes - Physical Exam Appears: Positive for: No Acute Distress Skin: Positive for: Normal Color, Warm, Dry Eye Exam: Positive for: Normal appearance, EOMI, PERRL Cardiovascular/Chest: Positive for: Regular Rate, Rhythm Respiratory: Positive for: Normal Breath Sounds Gastrointestinal/Abdominal: Positive for: Normal Exam Extremity: Positive for: Normal ROM 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 Negative for: Motor/Sensory Deficits - Laboratory Results Result Diagrams: 05/01/17 17:45 05/01/17 17:45 - ECG Interpretation Of ECG: SR @ 78, PVCs. O2 Sat by Pulse Oximetry: 97 Pulse Ox Interpretation: Normal - Radiology X-Ray: Interpreted by Dc X-Ray Interpretation: No Acute Disease Medical Decision Making Medical Decision Makin yo with hyperglycemia. - labs - EKG - CXR - IVF Time: 0 --Patient will be transferred to Dr. Beaver, pending accucheck and reassessment. Scribe Attestation: Documented by Mary Godfrey, acting as a scribe for Yenifer Duque MD. Provider Scribe Attestation: All medical record entries made by the Scribe were at my direction and personally dictated by me. I have reviewed the chart and agree that the record accurately reflects my personal performance of the history, physical exam, medical decision making, and the department course for this patient. I have also personally directed, reviewed, and agree with the discharge instructions and disposition. Disposition - Clinical Impression Clinical Impression: Hyperglycemia - Disposition Referrals: [facility] [Outside] Disposition: Transfer of Care Disposition Time: 19:00 Condition: STABLE Instructions: Hyperglycemia, Adult, The ABCs of Diabetes Forms: [employer] (Palauan)
[2017-05-01 17:51] LABS: BASO # 0.1 K/uL (0.0-0.2); BASO % 1.2 % (0.0-2.0); EOS % 0.9 % (0.0-4.0); HEMOGLOBIN 13.1 g/dL (12.0-18.0); LYMPH # 1.1 K/uL (1.0-4.3); LYMPH % 22.1 % (20.0-40.0); MEAN CELL VOLUME 96.1 fl (80.0-94.0); MEAN CORPUSCULAR HEMOGLOBIN 32.2 pg (27.0-31.0); MEAN CORPUSCULAR HGB CONC 33.5 g/dL (33.0-37.0); MEAN PLATELET VOLUME 8.7 fl (7.2-11.7); MONO # 0.4 K/uL (0.0-0.8); MONO % 7.1 % (0.0-10.0); NEUT # 3.5 K/uL (1.8-7.0); NEUT % 68.7 % (50.0-75.0); NRBC % 0.1 % (0.0-0.0); RBC 4.06 Mil/uL (4.40-5.90); RED CELL DISTRIBUTION WIDTH 14.3 % (11.5-14.5); WHITE BLOOD COUNT 5.1 K/uL (4.8-10.8)
[2017-05-01 17:58] LABS: SQUAMOUS EPITHIAL < 1 /hpf (0-5); URINE BILIRUBIN NEGATIVE (NEGATIVE); URINE BLOOD NEGATIVE (NEGATIVE); URINE CLARITY CLEAR (Clear); URINE COLOR STRAW (YELLOW); URINE GLUCOSE (UA) >=500 mg/dL (Normal); URINE LEUKOCYTE ESTERASE NEG Leu/uL (Negative); URINE PROTEIN NEGATIVE (NEGATIVE); URINE UROBILINOGEN 0.2-1.0 mg/dL (0.2-1.0)
[2017-05-01 18:06] LABS: INR 0.9 (0.9-1.2); PARTIAL THROMBOPLASTIN TIME 28.9 Seconds (25.6-37.1); PROTHROMBIN TIME 10.2 Seconds (9.8-13.1)
[2017-05-01 18:14] LABS: ALB/GLOB RATIO 1.5 (1.0-2.1); ALBUMIN 4.4 g/dL (3.5-5.0); ALT/SGPT 108 U/L (21-72); AST/SGOT 80 U/L (17-59); BLOOD UREA NITROGEN 11 mg/dl (9-20); CALCIUM 9.7 mg/dL (8.4-10.2); GFR AFRICAN-AMERICAN > 60; GFR NON-AFRICAN AMERICAN > 60
[2017-05-01] MEDS ORDERED: Insulin Regular 100 units/ml IV STA (18:25)
[2017-05-01] MEDS ORDERED: Insulin Regular 100 units/ml ONE (18:39)
--- NOTE | 2017-05-01 19:11 | ED PDOC ---
- Laboratory Results Result Diagrams: 05/01/17 17:45 05/01/17 17:45 - ECG O2 Sat by Pulse Oximetry: 97 (RA) Pulse Ox Interpretation: Normal Medical Decision Making Medical Decision Making: Time: 1899 --Patient endorsed from Dr. Duque to me. --Pending AccuCheck and reassessment. Time: 2250 --Patient is medically stable for discharge and diagnosed home with hyperglycemia. --Patient one again was reinforced the need to follow up with the clinic. Clinical Impression: Hyperglycemia Scribe Attestation: Documented by Mary Godfrey, acting as a scribe for Damon Beaver MD. Provider Scribe Attestation: All medical record entries made by the Scribe were at my direction and personally dictated by me. I have reviewed the chart and agree that the record accurately reflects my personal performance of the history, physical exam, medical decision making, and the department course for this patient. I have also personally directed, reviewed, and agree with the discharge instructions and disposition. Disposition - Clinical Impression Clinical Impression: Hyperglycemia - POA Present On Arrival: None - Disposition Referrals: [facility] [Outside] Disposition: Routine/Home Disposition Time: 22:51 Condition: STABLE Instructions: Hyperglycemia, Adult, The ABCs of Diabetes Forms: [facility] (Syriac)
[2017-05-01 22:57] VITALS: BP 125/76; PULSE 73; TEMP 97.7
--- NOTE | 2017-05-01 23:17 | RAD ---
HISTORY: Hyperglycemia COMPARISON: Frontal chest radiograph 04/22/2017. FINDINGS: LUNGS: No active pulmonary disease. PLEURA: No significant pleural effusion identified, no pneumothorax apparent. CARDIOVASCULAR: Normal. OSSEOUS STRUCTURES: No significant abnormalities. VISUALIZED UPPER ABDOMEN: Gas is seen the gastric viscus in a similar pattern as shown previously on 04/22/2017. OTHER FINDINGS: None. IMPRESSION: No interval acute cardiopulmonary disease appreciated.
--- NOTE | 2017-05-02 18:07 | CARD ---
APPROVED REPORT EKG Measurement Heart [id number] <Conclusion> Sinus rhythm with occasional premature ventricular complexes Prolonged QT Abnormal ECG
[2017-05-03 17:16] VITALS: O2SAT 97
== END 2017-05-01 23:15 | disposition home or self-care (01) ==
LOC: H.ER 16:46
DX: E11.65 Type 2 diabetes mellitus with hyperglycemia (principal); Z79.4 Long term (current) use of insulin; F32.9 Major depressive disorder, single episode, unspecified; I10 Essential (primary) hypertension; I49.3 Ventricular premature depolarization
CPT/HCPCS: 71045; 80053; 81003; 82803; 82948; 84484; 85025; 85610; 85730; 93005; 96374; 99283; J7040

== ENCOUNTER 2017-05-03 04:19 | Emergency (ER) | payer MEDICAID ==
[2017-05-03 04:20] VITALS: BMI 23.6
[2017-05-03 04:38] VITALS: TEMP 98.6
[2017-05-03] MEDS ORDERED: Sodium Chloride 0.9% 1,000 ML IV STA ×2 (05:13→06:49)
--- NOTE | 2017-05-03 05:22 | ED PDOC ---
Hyperglycemia/Hypoglycemia Time Seen by Provider: 05/03/17 04:38 Chief Complaint (Nursing): High Blood Sugar Chief Complaint (Provider): High Blood Sugar History Per: Patient History/Exam Limitations: no limitations : The patient does not have any of the infectious symptoms listed except for those marked. Additional Complaint(s): 51 y/o male with past medical history of diabetes presents to the ED with hyperglycemia. Patient is non compliant with medications and diet. Patient has been seen in ED several times for same complaints. Patient is requesting blankets, pillow, urinals and light turned off. Denies any further medical complaints. Past Medical History Reviewed: Historical Data, Nursing Documentation, Vital Signs Vital Signs: Last Vital Signs Temp 98.6 F 05/03/17 04:35 Pulse 81 05/03/17 04:35 Resp 16 05/03/17 04:35 BP 151/88 H 05/03/17 04:35 Pulse Ox 100 05/03/17 04:35 - Medical History PMH: Depression, Diabetes (type I), HTN Denies: HIV, Kidney Stones, Chronic Kidney Disease - Family History Family History: States: Unknown Family Hx - Immunization History Hx Tetanus Toxoid Vaccination: No Hx Influenza Vaccination: No Hx Pneumococcal Vaccination: No - Home Medications Home Medications: Ambulatory Orders Medication Instructions Recorded GlipiZIDE [Glucotrol] 2.5 mg PO ACB #60 tab 04/28/17 metFORMIN [glucOPHAGE] 500 mg PO BID #60 tab 04/28/17 - Allergies Allergies/Adverse Reactions: Allergies Allergy/AdvReac Type Severity Reaction Status Date / Time No Known Allergies Allergy Verified 05/01/17 16:48 Review of Systems ROS Statement: Except As Marked, All Systems Reviewed And Found Negative (As per HPI, otherwise negative) Constitutional: Positive for: Other (hyperglycemia) Physical Exam - Reviewed Nursing Documentation Reviewed: Yes Vital Signs Reviewed: Yes - Physical Exam Appears: Positive for: Uncomfortable (Patient appears disheveled) Head Exam: Positive for: ATRAUMATIC, NORMAL INSPECTION, NORMOCEPHALIC Skin: Positive for: Normal Color, Warm, DRY Eye Exam: Positive for: EOMI, Normal appearance, PERRL ENT: Positive for: Normal ENT Inspection Neck: Positive for: Normal, Painless ROM, Supple Cardiovascular/Chest: Positive for: Regular Rate, Rhythm. Negative for: Murmur Respiratory: Positive for: Normal Breath Sounds. Negative for: Accessory Muscle Use, Respiratory Distress Gastrointestinal/Abdominal: Positive for: Normal Exam, Bowel Sounds, Soft Back: Positive for: Normal Inspection Extremity: Positive for: Normal ROM. Negative for: Deformity Neurologic/Psych: Positive for: Alert, Oriented (x3) - Laboratory Results Result Diagrams: 05/03/17 05:30 05/03/17 05:30 - ECG O2 Sat by Pulse Oximetry: 100 (RA) Pulse Ox Interpretation: Normal Medical Decision Making Medical Decision Making: Time: 05:15 Initial Impression: Hyperglycemia (non compliant with medications and diet) Plan: Venous blood gas BMP CBC Sodium chloride 1L IV Urinalysis Reevaluation [address] Evans pending glycemic control. Scribe Attestation: Documented by Shirin Staton acting as a scribe for Benito Barney MD. Scribe Attestation: All medical record entries made by the Scribe were at my direction and personally dictated by me. I have reviewed the chart and agree that the record accurately reflects my personal performance of the history, physical exam, medical decision making, and the department course for this patient. I have also personally directed, reviewed, and agree with the discharge instructions and disposition. Disposition - Clinical Impression Clinical Impression: Hyperglycemia - Patient ED Disposition Is Patient to be Admitted: Transfer of Care - Disposition Disposition: Transfer of Care Disposition Time: 07:00 Condition: STABLE Forms: [employer] (Central African) Patient Signed Over To: Jax Evans Handoff Comments: pending repeat FS after medication and final dispo
[2017-05-03 05:42] LABS: HEMOGLOBIN 13.1 g/dL (12.0-18.0); MEAN CELL VOLUME 98.9 fl (80.0-94.0); MEAN CORPUSCULAR HEMOGLOBIN 32.3 pg (27.0-31.0); MEAN CORPUSCULAR HGB CONC 32.6 g/dL (33.0-37.0); RBC 4.06 Mil/uL (4.40-5.90); RED CELL DISTRIBUTION WIDTH 14.6 % (11.5-14.5); WHITE BLOOD COUNT 3.1 K/uL (4.8-10.8)
[2017-05-03 05:45] LABS: VENOUS BLOOD GAS BASE EXCESS 1.7 mmol/L (0.0-2.0); VENOUS BLOOD GAS PCO2 51 mmHg (40-60); VENOUS BLOOD GAS PO2 37 mm/Hg (30-55); VENOUS BLOOD PH 7.35 (7.32-7.43)
[2017-05-03 05:53] LABS: SQUAMOUS EPITHIAL < 1 /hpf (0-5); URINE BILIRUBIN NEGATIVE (NEGATIVE); URINE BLOOD NEGATIVE (NEGATIVE); URINE CLARITY CLEAR (Clear); URINE COLOR STRAW (YELLOW); URINE GLUCOSE (UA) >=500 mg/dL (Normal); URINE LEUKOCYTE ESTERASE NEG Leu/uL (Negative); URINE PROTEIN NEGATIVE (NEGATIVE); URINE UROBILINOGEN 0.2-1.0 mg/dL (0.2-1.0)
[2017-05-03] MEDS ORDERED: Insulin Regular 100 units/ml IV STA ×2 (05:54→06:49)
[2017-05-03 06:00] LABS: BLOOD UREA NITROGEN 13 mg/dl (9-20); CALCIUM 9.4 mg/dL (8.4-10.2); GFR AFRICAN-AMERICAN > 60; GFR NON-AFRICAN AMERICAN > 60
[2017-05-03 06:49] VITALS: RESP 18
[2017-05-03 07:16] VITALS: O2SAT 100
--- NOTE | 2017-05-03 07:22 | ED PDOC ---
- Laboratory Results Result Diagrams: 05/03/17 05:30 05/03/17 05:30 - ECG O2 Sat by Pulse Oximetry: 100 (RA) Pulse Ox Interpretation: Normal - Progress Re-evaluation Time: 09:00 Condition: Re-examined, Improved Medical Decision Making Medical Decision Making: Patient signed out to provider at 7am from Dr. Barney pending hyperglycemia correction. Documented by Hilda Rosario acting as a scribe for Jax Evans MD. All medical record entries made by the Scribe were at my direction and personally dictated by me. I have reviewed the chart and agree that the record accurately reflects my personal performance of the history, physical exam, medical decision making, and the department course for this patient. I have also personally directed, reviewed, and agree with the discharge instructions and disposition. Disposition Doctor Will See Patient In The: Office Counseled Patient/Family Regarding: Studies Performed, Diagnosis, Need For Followup - Clinical Impression Clinical Impression: Hyperglycemia - POA Present On Arrival: None - Disposition Referrals: [facility] [Outside] Disposition: Routine/Home Disposition Time: 09:00 Condition: IMPROVED Additional Instructions: Follow up with your PCP in 2-3 days. Instructions: Hyperglycemia, Adult
[2017-05-03 11:33] VITALS: BP 133/83; PULSE 88
== END 2017-05-03 09:57 | disposition home or self-care (01) ==
LOC: H.ER 04:19
DX: E11.65 Type 2 diabetes mellitus with hyperglycemia (principal); F32.9 Major depressive disorder, single episode, unspecified; I10 Essential (primary) hypertension; Z79.4 Long term (current) use of insulin; Z91.14 Patient's other noncompliance with medication regimen
CPT/HCPCS: 80048; 81003; 82803; 82948; 85027; 96360; 99284; J7040